=== PATIENT | female | born 1950 | race Caucasian/White ===

== ENCOUNTER 2016-12-09 23:35 | Inpatient (IN) ==
[2016-12-10] MEDS ORDERED: SODIUM CHLORIDE 0.9% 1,000 ML IV STA ×2 (00:05→03:05)
[2016-12-10 00:18] LABS: Basophils % 0.1 % (0.0-0.8); Eosinophils # 0.1 10*3/uL (0.0-0.87); Eosinophils % 0.5 % (0.00-10.9); Hematocrit 39.6 VOL% (35.7-47.0); Hemoglobin 13.5 GM/DL (12.0-16.0); Immature Granulocytes % 0.8 %; Immature Granulocytes Absolute 0.17 #; Lymphocytes # 2.1 10*3/uL (1.4-4.0); Lymphocytes % 9.7 % (21.3-54.2); Mean Corpuscular HGB Conc 34.1 GM/DL (32-36); Mean Corpuscular Hemoglobin 29 PG (27-34); Mean Corpuscular Volume 86.3 FL (87-102); Mean Platelet Volume 11.9 FL (9.6-12.0); Monocytes # 0.6 10*3/uL (0.11-0.8); Monocytes % 2.8 % (1.7-12.7); Neutrophils # 18.2 10*3/uL (1.4-7.4); Neutrophils % 86.1 % (38.7-73.9); Platelet Count 136 T/CUMM (130-400); Red Blood Count 4.59 MC/CUMM (3.8-5.5); Red Cell Distribution Width 15.1 % (9.3-17.3); White Blood Count 21.2 T/CUMM (4-12)
[2016-12-10 00:24] LABS: PT Patient Result 22.1 SECS
[2016-12-10 00:28] LABS: Albumin 3.4 G/DL (3.4-5.0); Bilirubin,Total 0.4 MG/DL (0.2-1.0); Calcium 8.6 MG/DL (8.5-10.1); Osmolality,Calculated 273.8 MOS/KG (273-304); Total Protein 6.4 G/DL (6.4-8.3)
[2016-12-10 01:08] LABS: Band Neutrophils 6 % (0-10); Lactic Acid 1.2 MMOL/L (0.4-2.0); Lymphocytes 5 % (20-55); Segmented Neutrophils 86 % (50-85); Total Cells Counted 100
[2016-12-10 01:09] LABS: Anisocytosis 1+; Platelet Estimate Normal
[2016-12-10 01:49] LABS: Apearance,Urine CLEAR (Clear); Bacteria,Urine Moderate /HPF (Few); Bilirubin,Urine Negative (Negative); Blood, Urine Negative (Negative); Glucose,Urine (UA) Negative (Negative); Hyaline Casts,Urine 19 /LPF (0-3); Ketones,Urine Negative (Negative); Mucus,Urine Occasional /LPF (Occasional); Nitrite,Urine Negative (Negative); Protein,Urine Negative; RBC,Urine <1 /HPF (0-4); Squamous Epithelial Cell,Urine Occasional /HPF (0-10); Urine Color Yellow (Yellow); Urine Specific Gravity 1.008 (1.001-1.035); Urine Urobilinogen < 2.0 EU/DL (0.2-1.0); WBC,Urine <1 /HPF (0-6)
[2016-12-10] MEDS ORDERED: cefTRIAXone 1,000 MG in SODIUM CHLORIDE 0.9% 100 ML IV STA (03:06)
[2016-12-10] MEDS ORDERED: MEPERIDINE 50 MG TABLET PO PRN (03:19)
[2016-12-10] MEDS ORDERED: CETIRIZINE 10 MG TABLET PO PRN (03:19)
[2016-12-10] MEDS ORDERED: NITROGLYCERIN SL 0.4 MG TABLET SL PRN (03:19)
[2016-12-10] MEDS ORDERED: HYDROMORPHONE HCL 2 MG PO PRN (03:19)
[2016-12-10] MEDS ORDERED: SODIUM CHLORIDE 0.9% 100 ML IV ONE (03:38)
[2016-12-10] MEDS ORDERED: cefTRIAXone 1,000 MG VIAL ONE (03:38)
[2016-12-10] MEDS ORDERED: BISACODYL 5 MG TABLET PO PRN (04:01)
[2016-12-10] MEDS ORDERED: ONDANSETRON 4 MG/2 ML VIAL IV PRN (04:01)
--- NOTE | 2016-12-10 04:05 | Hospitalist History & Physical ---
History of Present Illness History of present illness: Ms. Coe is a 66 year old female Home Medications Medication Instructions Recorded Confirmed Type Betamethasone Valerate 1 applic TOP BID 07/03/16 07/18/16 History [Betamethasone Valerate 0.1% Cream] Biotin 5,000 mcg PO DAILY 07/03/16 07/18/16 History Cetirizine HCl [ZyrTEC Cap] 10 mg PO DAILY PRN 07/03/16 07/18/16 History Clotrimazole/Betameth Cream 1 applic TOP BID 07/03/16 07/18/16 History [Lotrisone Cream] Diclofenac 1% Gel [Voltaren 1% Gel] 1 applic TOP BID 07/03/16 07/18/16 History Fluoxetine HCl 40 mg PO DAILY 07/03/16 07/18/16 History Ketoconazole 2% Cream [Nizoral 2% 1 applic TOP BID 07/03/16 07/18/16 History Cream] Levothyroxine Sodium 112 mcg PO DAILY 07/03/16 07/18/16 History Niacin 500 mg PO BID 07/03/16 07/18/16 History Pregabalin [Lyrica] 100 mg PO BID 07/03/16 07/18/16 History Promethazine HCl 25 mg PO RT Q12H PRN 07/03/16 07/18/16 History Topiramate [Topamax] 2 tablet PO BEDTIME 07/03/16 07/18/16 History Warfarin [Coumadin] 7.5 mg PO DIRECTED 07/03/16 07/18/16 History amLODIPine [Norvasc] 2.5 mg PO DAILY 07/03/16 07/18/16 History clonazePAM TAB [KlonoPIN] 0.5 mg PO BID PRN 07/03/16 07/18/16 History Hydromorphone HCl [Dilaudid] 2 mg PO DIRECTED PRN 07/11/16 07/24/16 History Meperidine Tab [Demerol Tab] 50 mg PO BID PRN 07/18/16 07/18/16 History Nitroglycerin Sl Tab [Nitrostat] 0.4 mg SL Q5M PRN 07/18/16 07/18/16 History Pantoprazole Sodium [Protonix] 40 mg PO BID 07/24/16 07/24/16 History Allergies Allergy/AdvReac Type Severity Reaction Status Date / Time codeine Allergy Unknown Unknown/Unable Verified 07/11/16 10:42 to obtain morphine Allergy Unknown Unknown/Unable Verified 07/11/16 10:42 to obtain Medical,Surgical,& Family Hx - Medical History Cardio: History of: CAD, Hypertension No history of: [place] Psychological: History of: Depression Neurology: History of: Cerebrovascular Accident, Migraine No history of: Seizures HEENT: History of: Ear Problem ([place]), Eye Problem (No peripheral visions) Endocrine: History of: Thyroid Disorder (Hypothyroid) Rheumatology: History of;: Psoriasis Respiratory: History of: Respiratory Problems (Seasonal allergies) Renal: No history of: Renal Problems Genitourinary: No history of: Bladder Problem, Kidney Stones Gastrointestinal: History of: GERD, Hemorrhoids No history of: Polyps Musculoskeletal: History of: Back/Neck Problems, Degenerative Disk Disease, Musculoskeletal Problems (Arthritis) Reproductive: No history of: Abnormal Pap Smear, Breast Cancer, Reproductive Cancer - Surgical History Cardiac Surgeries: Sugical HX of: Cardiac Catheterization, Carotid Endarterectomy HEENT Surgeries: Surgical HX of: Carotid Endarterectomy, Eye Surgery (Bilateral cataract removal), Tonsilectomy & Adenoidectomy Patient denies: Thyroid Surgery Abdominal Surgeries: Surgical HX of: Abdominal Surgery, Appendectomy, Cholecystectomy, Colonoscopy, EGD Patient denies: Gastric Bypass Surgery, Hernia Repair Reproductive Surgeries: Surgical HX of;: Gynecologic Surgery, Hysterectomy Patient denies;: Genitourinary Surgery Orthopedic Surgeries: Patient denies;: Orthopedic Surgery - Family History Family History: Reports;: Family Diabetes (Mother, Sister x3), Family Heart Disease (Mother) Denies;: Family Anesthesia Reaction, Family Cancer, Family Hypertension, Family Psychiatric Problems, Family Stroke - Social History Smoking Status: Current some day smoker Frequency of Alcohol Use: None Type of Drug Use: None Exam - Constitutional Vitals: Period Temp Pulse Resp BP Sys/Mer[place] Pulse Ox Last 24 Hr 98.2 F-98.2 F 52-77 16-20 81-109/50-65 95-100 Results - Labs CBC & BMP: 12/10/16 00:00 12/10/16 00:00
[2016-12-10 04:31] LABS: Free T4 (Free Thyroxine) 1.39 NG/DL (0.76-1.46); Thyroid Stimulating Hormone 6.01 uIU/ml (0.358-3.74)
--- NOTE | 2016-12-10 04:56 | Emergency Department Note ---
INeal Mantricia, am scribing for, and in the presence of, Shana Cassidy DO 00:03. I, Shana Cassidy DO, personally performed the services described in this documentation, ascribed by Ej De Jesus in my presence, and it is both accurate and complete [id number] . Arrival - Arrival Chief Complaint: Neuro Stated Complaint: chest pain/poss. stroke ED Nursing Triage Note: C/O Not able to use words appropriately/headache/chest pain. 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 Stroke Alert activated for expressive aphasia and partial vision loss Mode of Arrival: Wheelchair Limitations: No Limitations Source: Patient, Significant other - History of Present Illness HPI Narrative: Pt is a 66 y/o white female arriving to ED for evaluation of possible CVA. reports that pt told him that she was not feeling well and was about to lay down. He states that he heard her yell from the bedroom; once there, pt told him that "everything was león" so he brought her to ED. Pt c/o chest pain, back pain, rib pain, and headache. Pt has a PSHx of 4 carotid artery surgeries and has a PMHx of HTN, heart problems, and a CVA in the past. During exam, pt states that she feels like she is getting a "tight hug from a gorilla." She is currently taking Coumadin. Stroke Alert was activated for expressive aphasia and partial vision loss. No other complaints were reported to ED. Onset (ago): hour(s) Consistency: constant Severity: mild Date of Last Menstrual Period: na Allergies/Adverse Reactions: Allergies Allergy/AdvReac Type Severity Reaction Status Date / Time codeine Allergy Unknown Unknown/Unable Verified 07/11/16 10:42 to obtain morphine Allergy Unknown Unknown/Unable Verified 07/11/16 10:42 to obtain Home Medications: Home Medications Medication Instructions Recorded Confirmed Type Betamethasone Valerate 1 applic TOP BID 07/03/16 07/18/16 History [Betamethasone Valerate 0.1% Cream] Biotin 5,000 mcg PO DAILY 07/03/16 07/18/16 History Cetirizine HCl [ZyrTEC Cap] 10 mg PO DAILY PRN 07/03/16 07/18/16 History Clotrimazole/Betameth Cream 1 applic TOP BID 07/03/16 07/18/16 History [Lotrisone Cream] Diclofenac 1% Gel [Voltaren 1% Gel] 1 applic TOP BID 07/03/16 07/18/16 History Fluoxetine HCl 40 mg PO DAILY 07/03/16 07/18/16 History Ketoconazole 2% Cream [Nizoral 2% 1 applic TOP BID 07/03/16 07/18/16 History Cream] Levothyroxine Sodium 112 mcg PO DAILY 07/03/16 07/18/16 History Niacin 500 mg PO BID 07/03/16 07/18/16 History Pregabalin [Lyrica] 100 mg PO BID 07/03/16 07/18/16 History Promethazine HCl 25 mg PO RT Q12H PRN 07/03/16 07/18/16 History Topiramate [Topamax] 2 tablet PO BEDTIME 07/03/16 07/18/16 History Warfarin [Coumadin] 7.5 mg PO DIRECTED 07/03/16 07/18/16 History amLODIPine [Norvasc] 2.5 mg PO DAILY 07/03/16 07/18/16 History clonazePAM TAB [KlonoPIN] 0.5 mg PO BID PRN 07/03/16 07/18/16 History Hydromorphone HCl [Dilaudid] 2 mg PO DIRECTED PRN 07/11/16 07/24/16 History Meperidine Tab [Demerol Tab] 50 mg PO BID PRN 07/18/16 07/18/16 History Nitroglycerin Sl Tab [Nitrostat] 0.4 mg SL Q5M PRN 07/18/16 07/18/16 History Pantoprazole Sodium [Protonix] 40 mg PO BID 07/24/16 07/24/16 History Review of System - Review of System 12 point system: reviewed and no additional remarkable complaints except as stated - Review of System Constitutional: Present: other (possible CVA) Eyes: Present: vision change Respiratory: Absent: cough Cardiovascular: Present: chest pain Gastrointestinal: Absent: abdominal pain, nausea, vomiting, diarrhea Musculoskeletal: Present: back pain. Absent: arm pain, leg pain, neck pain Neurological: Present: headache Medical,Surgical,& Family Hx - Medical History Cardio: History of: CAD, Hypertension No history of: [place] Psychological: History of: Depression Neurology: History of: Cerebrovascular Accident, Migraine No history of: Seizures HEENT: History of: Ear Problem ([place]), Eye Problem (No peripheral visions) Endocrine: History of: Thyroid Disorder (Hypothyroid) Rheumatology: History of;: Psoriasis Respiratory: History of: Respiratory Problems (Seasonal allergies) Renal: No history of: Renal Problems Genitourinary: No history of: Bladder Problem, Kidney Stones Gastrointestinal: History of: GERD, Hemorrhoids No history of: Polyps Musculoskeletal: History of: Back/Neck Problems, Degenerative Disk Disease, Musculoskeletal Problems (Arthritis) Reproductive: No history of: Abnormal Pap Smear, Breast Cancer, Reproductive Cancer - Surgical History Cardiac Surgeries: Sugical HX of: Cardiac Catheterization, Carotid Endarterectomy HEENT Surgeries: Surgical HX of: Carotid Endarterectomy, Eye Surgery (Bilateral cataract removal), Tonsilectomy & Adenoidectomy Patient denies: Thyroid Surgery Abdominal Surgeries: Surgical HX of: Abdominal Surgery, Appendectomy, Cholecystectomy, Colonoscopy, EGD Patient denies: Gastric Bypass Surgery, Hernia Repair Reproductive Surgeries: Surgical HX of;: Gynecologic Surgery, Hysterectomy Patient denies;: Genitourinary Surgery Orthopedic Surgeries: Patient denies;: Orthopedic Surgery - Family History Family History: Reports;: Family Diabetes (Mother, Sister x3), Family Heart Disease (Mother) Denies;: Family Anesthesia Reaction, Family Cancer, Family Hypertension, Family Psychiatric Problems, Family Stroke - Social History Smoking Status: Current some day smoker Frequency of Alcohol Use: None Type of Drug Use: None Exam Vital Signs: Vital Signs Temperature 98.2 F 12/09/16 23:35 Pulse Rate 77 12/10/16 03:40 Respiratory Rate 20 12/10/16 03:40 Blood Pressure 104/64 12/10/16 03:40 O2 Sat by Pulse Oximetry 97 12/10/16 03:40 - General General appearance: alert, in no apparent distress - Head Head exam: Present: atraumatic, normocephalic, normal inspection - Eye Eye exam: Present: normal appearance, PERRL, EOMI - ENT ENT exam: Present: normal exam, normal oropharynx, mucous membranes moist, TM's normal bilaterally, normal external ear exam - Neck Neck exam: Present: normal inspection, full ROM, trachea midline. Absent: tenderness - Chest Chest inspection: Present: normal inspection, symmetric chest wall rise. Absent : tenderness - Respiratory Respiratory exam: Present: normal lung sounds bilaterally - Cardiovascular Cardiovascular exam: Present: regular rate, normal rhythm, normal heart sounds - Abdominal Exam Abdominal exam: Present: soft, normal bowel sounds. Absent: distention, tenderness, guarding, rebound - Extremities Exam Extremities exam: Present: normal inspection, full ROM, normal capillary refill. Absent: tenderness, pedal edema - Back Exam Back exam: Present: normal inspection, full ROM. Absent: tenderness - Neurological Exam Neurological exam: Present: alert, oriented X3, CN II-XII intact, normal gait, reflexes normal - Psychiatric Psychiatric exam: Present: normal affect, normal mood - Skin Skin exam: Present: warm, dry, intact, normal color Course Course Narrative: Ct head negative. Per my exam pt is not having expressive aphasia, she seems slightly confused and having word finding difficulty. labs reveal wbc of 21, given hypotensive (responsive to fluids) more likely considering sepsis picture. unable to find source, CXr normal, CT abd/pelvis shows cirrhosis. could be hepatitis vs hepatic encephalopathy vs ? given rocephin for empiric treatment, blood cultures ordered and admitted. Pt is Dr Bravo patient. Results - Labs CBC & BMP: 12/10/16 00:00 12/10/16 00:00 Lab Results: I have reviewed the patients labs - EKG EKG results: interpreted by LUPE BENNETT - Diagnostic Findings Procedure: Chest x-ray: image reviewed by me, CT Abdomen and Pelvis: report reviewed by me (liver cirrhosis with retroperitoneal fat stranding diffusely), CT: image reviewed by me, report reviewed by me (no stroke signs) Disposition Clinical Impression: Leukocytosis, Sepsis Case discussed with: patient Disposition: Still a Patient Condition: Stable
[2016-12-10] MEDS: SODIUM CHLORIDE 0.9% 1,000 ML IV SCH ×3 (05:46→23:48)
--- NOTE | 2016-12-10 06:43 | CT Report ---
CT abdomen pelvis w con Indication: Sepsis Comparison: 10/01/2010 CT Technique: CT of the abdomen and pelvis was performed following administration of intravenous contrast. Coronal and sagittal reformatted images were additionally created and submitted for review. The total DLP is 1013 mGy*cm. Dose reduction: This CT exam was performed using one or more of the following dose reduction techniques: Automated exposure control, automated adjustment of the mA and/or KV according to patient size, or use of iterative reconstruction technique. Findings: Very minimal posterior basilar dependent atelectatic changes are noted bilaterally. Lung bases are otherwise clear. There is no pleural or pericardial effusion. ABDOMEN: Liver/Gallbladder: No abnormal enhancing hepatic lesions. Cholecystectomy clips are noted. Mild nodular contour of the liver margin suggesting a degree of underlying cirrhosis. Portal vein is patent. Spleen: Enlarged, similar to prior, suggestive of portal hypertension. Pancreas: No acute findings. Adrenals: 2.3 cm right adrenal hypodense nodule is essentially unchanged from the 2011 study, which suggests benign artery. Additional hypodense lesion within the left adrenal gland is stable from prior. Kidneys: Both kidneys enhance symmetrically. There is excretion of acute contrast from both kidneys on delayed images. Bowel/mesentery: Small bowel is nondilated. There is no free fluid/air within the abdomen. There is no mesenteric adenopathy. There is moderate stool throughout colon suggesting a degree of fecal stasis/constipation. Colon is otherwise nondilated with no focal lesions. Retroperitoneum: No evidence of aortic aneurysm or significant retroperitoneal adenopathy. PELVIS: No free fluid. Bladder appears grossly unremarkable for degree of distention. There has been a prior hysterectomy. No adenopathy. BONES: No acute or suspicious osseous abnormalities are identified. IMPRESSION: 1. No acute abnormality within the abdomen or pelvis to explain patient's symptoms. 2. Findings of hepatic cirrhosis and splenomegaly. 3. Findings suggestive of stasis/constipation. Preliminary report by [facility]. 12/10/2016 6:35 AM PROCEDURE INTERPRETED AT [facility] DEPARTMENT OF RADIOLOGY Final Report Signed by: Dennis Ferreira
--- NOTE | 2016-12-10 07:39 | CT Report ---
CT head/brain wo con INDICATION: Expressive aphasia Headache The total DLP is 1225 mGy*cm. COMPARISON: prior MRI brain 07/02/2016 Technique: Serial axial tomographic images of the brain were obtained without the use of intravenous contrast. Dose reduction: This CT exam was performed using one or more of the following dose reduction techniques: Automated exposure control, automated adjustment of the mA and/or KV according to patient size, or use of iterative reconstruction technique. Findings: Mild generalized atrophy is noted with mild prominence of the sulci and cortical volume loss. Periventricular white matter hypodensity changes are noted bilaterally which do not demonstrate mass effect and are nonspecific but favored to represent sequela of chronic microvascular ischemia. There is also somewhat focal hypodensity within the periventricular and subcortical left frontal lobe white and mederos matter suggesting remote infarct and encephalomalacia. There is no evidence of vascular territory infarct or acute intracranial hemorrhage. The mederos-white matter differentiation is generally maintained. There is no hydrocephalus. The basilar cisterns are patent. The visualized paranasal sinuses, mastoid air cells and middle ear cavities are predominantly clear. The included orbits and their contents appear within normal limits. The visualized osseous structures and overlying soft tissues of the skull and face demonstrate no acute abnormality. IMPRESSION: No acute intracranial hemorrhage or vascular territory infarction. Mild atrophy and sequela of chronic microvascular ischemia. Remote left frontal lobe infarct. Preliminary report by [facility]. PROCEDURE INTERPRETED AT [facility] DEPARTMENT OF RADIOLOGY Final Report Signed by: Dennis Ferreira
--- NOTE | 2016-12-10 07:55 | XRay Report ---
Exam: XR chest 1V portable Indication: Sepsis, cardiomegaly Comparison study: 12/27/2008 radiograph Findings: Cardiac silhouette is mildly enlarged, similar to prior. There are minimal perihilar interstitial opacities, which appears slightly increased from prior with minimal peribronchial thickening also noted. There is no definite focal consolidation. There is no pneumothorax or pleural effusion. Osseous structures appear stable.. Impression: Cardiomegaly with minimal perihilar interstitial opacities and peribronchial thickening may represent bronchitis or other viral or atypical infectious/inflammatory process. A mild degree of pulmonary edema is not excluded but favored to be less likely. PROCEDURE INTERPRETED AT [facility] DEPARTMENT OF RADIOLOGY Final Report Signed by: Dennis Ferreira
--- NOTE | 2016-12-10 07:59 | EKG Report ---
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
[2016-12-10] MEDS ORDERED: NIACIN 500 MG TABLET PO SCH (09:00)
[2016-12-10] MEDS ORDERED: FLUoxetine 20 MG CAPSULE PO SCH (09:00)
--- NOTE | 2016-12-10 09:36 | Internal Med History&Physical ---
Assessment and Plan (1) Sepsis Status: Acute Assessment and plan: 66-year-old female admitted to acute care * Possible sepsis with leukocytosis. Etiology of patient's symptoms unclear. She was hypotensive and had severe headache initially. Her white count is elevated. Her chest x-ray is suspicious for infiltrate. She has some coarse but equal breath sounds. She has been given IV antibiotics and blood cultures were done. Will add Zithromax. * Hypertension. Blood pressure is better controlled now. Initially it was quite low. * History of severe peripheral vascular disease. Patient has had bilateral carotid endarterectomy twice. Her INR is therapeutic * Chest pain. It appears more of musculoskeletal origin. Will check troponin * Chronic back pain. Will continue her pain medication * Chronic depression. Continue current treatment * History of CVA. I doubt patient had a TIA or neurological event. She did not had any expressive aphasia. I have offered her consultation with neurology but she declines * Continue current treatment Current Visit: Yes (2) Hypertension Status: Acute Current Visit: Yes (3) History of bilateral carotid endarterectomy Status: Acute Current Visit: Yes (4) Chronic back pain Status: Acute Current Visit: Yes (5) Depression Status: Acute Current Visit: Yes (6) Leukocytosis Status: Acute Current Visit: Yes History of Present Illness Chief complaint: Not feeling well, headache, chest pressure History of present illness: Ms. Coe is a 66 year old female with history of multiple medical problems including severe peripheral vascular disease requiring bilateral carotid endarterectomy twice, migraine headaches, chronic anticoagulation, hypertension , chronic back pain, depression, hypothyroidism who presented to the emergency room with complaints of not feeling well for past few days. She was lying in her bed and last for her that everything was going great. She was brought to the emergency room. She had chest pain back pain and rib pain and headaches. She was found to be hypotensive. There was a question about expressive aphasia but patient denies it. There was also question of problems with her vision. She felt it was meedros. She denied any weakness in her hands or feet. She denies any slurred speech. She denies any nausea vomiting or diarrhea. She has been having chronic back pain and has been seeing pain clinic. She has not received any recent steroid injections. She denies any anginal type chest pain. There was a question about confusion. She was found to have elevated white count and was hypotensive. She was started on fluid bolus and given IV fluids and IV antibiotics. Cultures were done. Patient had a CT scan of abdomen which showed no acute changes but possible changes of cirrhosis of liver with splenomegaly. Patient lives at home with her . She has been a smoker all her life. She occasionally drinks alcohol. She denies any drug use in the past. Her daughter has history of hepatitis. Home Medications Medication Instructions Recorded Confirmed Type Betamethasone Valerate 1 applic TOP BID PRN 07/03/16 12/10/16 History [Betamethasone Valerate 0.1% Cream] Biotin 5,000 mcg PO DAILY 07/03/16 12/10/16 History Cetirizine HCl [ZyrTEC Cap] 10 mg PO DAILY PRN 07/03/16 12/10/16 History Clotrimazole/Betameth Cream 1 applic TOP BID PRN 07/03/16 12/10/16 History [Lotrisone Cream] Diclofenac 1% Gel [Voltaren 1% Gel] 1 applic TOP BID PRN 07/03/16 12/10/16 History Fluoxetine HCl 40 mg PO BEDTIME 07/03/16 12/10/16 History Levothyroxine Sodium 112 mcg PO DAILY 07/03/16 12/10/16 History Niacin 500 mg PO BID 07/03/16 12/10/16 History Promethazine HCl 25 mg PO Q8H PRN 07/03/16 12/10/16 History Topiramate [Topamax] 100 mg PO BEDTIME 07/03/16 12/10/16 History Warfarin [Coumadin] 7.5 mg PO DIRECTED 07/03/16 12/10/16 History amLODIPine [Norvasc] 2.5 mg PO DAILY 07/03/16 12/10/16 History Meperidine Tab [Demerol Tab] 50 mg PO TID 07/18/16 12/10/16 History Nitroglycerin Sl Tab [Nitrostat] 0.4 mg SL Q5M PRN 07/18/16 12/10/16 History Pantoprazole Sodium [Protonix] 40 mg PO BID 07/24/16 12/10/16 History Allergies Allergy/AdvReac Type Severity Reaction Status Date / Time codeine Allergy Unknown Unknown/Unable Verified 07/11/16 10:42 to obtain morphine Allergy Unknown Unknown/Unable Verified 07/11/16 10:42 to obtain Medical,Surgical,& Family Hx - Medical History Cardio: History of: CAD, Hypertension No history of: [place] Psychological: History of: Depression Neurology: History of: Cerebrovascular Accident, Migraine No history of: Seizures HEENT: History of: Ear Problem ([place]), Eye Problem (No peripheral visions) Endocrine: History of: Thyroid Disorder (Hypothyroid) Rheumatology: History of;: Psoriasis Respiratory: History of: Respiratory Problems (Seasonal allergies) Renal: No history of: Renal Problems Genitourinary: No history of: Bladder Problem, Kidney Stones Gastrointestinal: History of: GERD, Hemorrhoids No history of: Polyps Musculoskeletal: History of: Back/Neck Problems, Degenerative Disk Disease, Musculoskeletal Problems (Arthritis) Reproductive: No history of: Abnormal Pap Smear, Breast Cancer, Reproductive Cancer - Surgical History Cardiac Surgeries: Sugical HX of: Cardiac Catheterization, Carotid Endarterectomy HEENT Surgeries: Surgical HX of: Carotid Endarterectomy (Bilateral twice), Eye Surgery (Bilateral cataract removal), Tonsilectomy & Adenoidectomy Patient denies: Thyroid Surgery Abdominal Surgeries: Surgical HX of: Abdominal Surgery, Appendectomy, Cholecystectomy, Colonoscopy, EGD Patient denies: Gastric Bypass Surgery, Hernia Repair Reproductive Surgeries: Surgical HX of;: Gynecologic Surgery, Hysterectomy Patient denies;: Genitourinary Surgery Orthopedic Surgeries: Patient denies;: Orthopedic Surgery - Family History Family History: Reports;: Family Diabetes (Mother, Sister x3), Family Heart Disease (Mother) Denies;: Family Anesthesia Reaction, Family Cancer, Family Hypertension, Family Psychiatric Problems, Family Stroke - Social History Smoking Status: Current some day smoker Frequency of Alcohol Use: Rarely Type of Drug Use: None Marital Status: Lives With:: Spouse Functional capacity: uses cane/walker 12 point system: reviewed and no additional remarkable complaints except as stated (As mentioned in the HPI) Exam - Constitutional Vitals: Period Temp Pulse Resp BP Sys/Merida Pulse Ox Last 24 Hr 96.7 F-98.4 F 52-97 16-20 81-144/50-87 94-100 Exam: Examination: GENERAL: NAD. HEENT: PERRLA. EOMI. Mucous membranes are moist. NECK: Neck is supple. No JVD. No carotid bruit. No thyromegaly. CVS: Regular rate and rhythm. S1 and S2 are normal. She is tender in the chest wall. RESPIRATORY: Lungs are mostly clear. Few coarse breath sounds at the right base ABDOMEN: Soft and nontender. Bowel sounds are present. No hepatosplenomegaly. EXT: No edema. Peripheral pulses are present. 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 Cranial nerves II through XII are grossly intact. Motor strength is 5 over 5 both upper and lower extremities. SKIN: Warm and dry. MSK: No obvious deformity. Results - Labs CBC & BMP: 12/10/16 00:00 12/10/16 00:00 Lab Results: I have reviewed the past 24 hour labs Quality Measures - Stroke Onset of Symptoms Date: 12/09/16 Onset of Symptoms Time: 22:30 Symptom Onset Unknown: No
[2016-12-10] MEDS: LEVOTHYROXINE 112 MCG TABLET PO SCH (09:46)
[2016-12-10] MEDS: PANTOPRAZOLE 40 MG TABLET PO SCH ×2 (09:46→21:28)
[2016-12-10] MEDS ORDERED: ASPIRIN CHEW 81 MG TABLET PO ONE (10:29)
[2016-12-10 10:36] LABS: Troponin I Only < 0.015 NG/ML (0.00-0.045)
[2016-12-10] MEDS: CLOTRIMAZOLE/BETAMETHASONE CREAM 15 GM TUBE TOP SCH ×3 (10:51→22:42)
[2016-12-10] MEDS: KETOCONAZOLE 2% CREAM 30 GM TUBE TOP SCH ×3 (10:51→22:42)
[2016-12-10] MEDS: BETAMETHASONE VALERATE 0.1% CREAM 15 GM TUBE TOP SCH ×2 (10:52→21:35)
[2016-12-10] MEDS: DICLOFENAC 1% GEL 100 GM TUBE TOP SCH ×2 (10:52→21:33)
[2016-12-10 11:29] LABS: Hepatitis A Ab IgM Quant 0.07 Index; Hepatitis A Ab IgM Result Negative (Negative); Hepatitis B Core IgM Quant 0.14 Index; Hepatitis B Core IgM Result Negative (Negative); Hepatitis B Surface Ag Quant < 0.10 Index; Hepatitis B Surface Ag Result Negative (Negative); Hepatitis C Virus Ab Quant 0.11 Index; Hepatitis C Virus Ab Result Negative (Negative)
[2016-12-10] MEDS: AZITHROMYCIN INJ 500 MG in SODIUM CHLORIDE 0.9% 250 ML IV SCH (11:47)
[2016-12-10] MEDS ORDERED: SIMETHICONE CHEW 125 MG TABLET PO PRN (15:43)
[2016-12-10] MEDS: WARFARIN 7.5 MG TABLET PO SCH (18:30)
[2016-12-10] MEDS: FLUoxetine 20 MG CAPSULE PO SCH (21:28)
[2016-12-10] MEDS: TOPIRAMATE 100 MG TABLET PO SCH (21:33)
[2016-12-10] MEDS: clonazePAM 0.5 MG TABLET PO PRN (21:45)
[2016-12-11] MEDS: cefTRIAXone 1,000 MG in SODIUM CHLORIDE 0.9% 100 ML IV SCH (03:33)
[2016-12-11 04:46] LABS: Basophils % 0.2 % (0.0-0.8); Eosinophils # 0.1 10*3/uL (0.0-0.87); Eosinophils % 1.6 % (0.00-10.9); Hematocrit 37.8 VOL% (35.7-47.0); Hemoglobin 12.5 GM/DL (12.0-16.0); Immature Granulocytes % 0.5 %; Immature Granulocytes Absolute 0.03 #; Lymphocytes # 1.4 10*3/uL (1.4-4.0); Lymphocytes % 24.9 % (21.3-54.2); Mean Corpuscular HGB Conc 33.1 GM/DL (32-36); Mean Corpuscular Hemoglobin 29 PG (27-34); Mean Corpuscular Volume 87.1 FL (87-102); Mean Platelet Volume 11.5 FL (9.6-12.0); Monocytes # 0.2 10*3/uL (0.11-0.8); Monocytes % 3.8 % (1.7-12.7); Platelet Count 106 T/CUMM (130-400); Red Blood Count 4.34 MC/CUMM (3.8-5.5); Red Cell Distribution Width 15.5 % (9.3-17.3); White Blood Count 5.7 T/CUMM (4-12)
[2016-12-11] MEDS: SODIUM CHLORIDE 0.9% 1,000 ML IV SCH ×3 (05:11→23:18)
[2016-12-11 05:19] LABS: Troponin I Only < 0.015 NG/ML (0.00-0.045)
[2016-12-11 05:20] LABS: Albumin 3.1 G/DL (3.4-5.0); Bilirubin,Total 0.5 MG/DL (0.2-1.0); Calcium 8.3 MG/DL (8.5-10.1); Osmolality,Calculated 277.3 MOS/KG (273-304); Potassium 3.9 MMOL/L (3.5-5.1); Total Protein 5.8 G/DL (6.4-8.3)
[2016-12-11 05:28] LABS: PT Patient Result 21.6 SECS
--- NOTE | 2016-12-11 07:48 | EKG Report ---
Stationary ECG Study [facility] Test Date: 12/11/2016 7:48:09 AM Pat Name: STACY CHERY Department: Room: 285 Gender: F Lab Aid: CHADWICK : 1950 Requested by: Chuy Bravo Order Number: [id number] Reading MD: LIBRA NATION Intervals [place] Rate: 73 P: 66 [place]: 136 QRS: 73 QRSD: 74 T: 70 QT: 388 QTc: 415 Interpretive Statements SINUS RHYTHM at 73 bpm LOW QRS VOLTAGE IN PRECORDIAL LEADS Possible OLD ANTERIOR MYOCARDIAL INFARCTION Electronically Signed On 12-11-16 11:07:09 CDT by LIBRA NATION [id number]
--- NOTE | 2016-12-11 07:52 | Internal Med Progress Note ---
Assessment and Plan (1) Sepsis Status: Acute Assessment and plan: 66-year-old female admitted to acute care * Possible sepsis with leukocytosis. White count is better. She is afebrile. Will repeat a chest x-ray. * Hypertension. Blood pressure is better controlled now. Decrease fluid * History of severe peripheral vascular disease. Patient has had bilateral carotid endarterectomy twice. Her INR is therapeutic * Chest pain. Musculoskeletal. Troponin negative * Chronic back pain. Will continue her pain medication * Chronic depression. Continue current treatment * History of CVA. Stable * Start PT and OT. * Consult GI for possible cirrhotic changes on CT scan of abdomen with splenomegaly * Discussed with patient and her Current Visit: Yes (2) Hypertension Status: Acute Current Visit: Yes (3) History of bilateral carotid endarterectomy Status: Acute Current Visit: Yes (4) Chronic back pain Status: Acute Current Visit: Yes (5) Depression Status: Acute Current Visit: Yes (6) Leukocytosis Status: Acute Current Visit: Yes Internal Medicine - PN: Subj Interval history: She is feeling better this morning. No chest pain or shortness of breath. She is still having headaches. She denies any nausea or vomiting. Exam (Progress Note) - Constitutional Vitals: Period Temp Pulse Resp BP Sys/Merida Pulse Ox Last 24 Hr 97.6 F-98.6 F 63-76 16-20 111-130/55-70 91-99 Exam: Examination: GENERAL: NAD. HEENT: PERRLA. EOMI. NECK: Neck is supple. CVS: Regular rate and rhythm. S1 and S2 are normal. RESPIRATORY: Lungs are mostly clear. ABDOMEN: Soft and nontender. No hepatosplenomegaly. EXT: No edema. Peripheral pulses are present. TIE CUTTER: Nonfocal SKIN: Warm and dry. MSK: No obvious deformity. Results - Labs CBC & BMP: 12/11/16 04:10 12/11/16 04:10 Lab Results: I have reviewed the past 24 hour labs Quality Measures - Stroke Onset of Symptoms Date: 12/09/16 Onset of Symptoms Time: 22:30 Symptom Onset Unknown: No
[2016-12-11] MEDS ORDERED: BIOTIN 5000 MCG PO SCH (09:00)
[2016-12-11] MEDS: LEVOTHYROXINE 112 MCG TABLET PO SCH (09:40)
[2016-12-11] MEDS: PANTOPRAZOLE 40 MG TABLET PO SCH ×2 (09:41→21:13)
[2016-12-11] MEDS: CLOTRIMAZOLE/BETAMETHASONE CREAM 15 GM TUBE TOP SCH ×2 (09:42→23:21)
[2016-12-11] MEDS: BETAMETHASONE VALERATE 0.1% CREAM 15 GM TUBE TOP SCH ×2 (09:42→23:21)
[2016-12-11] MEDS: KETOCONAZOLE 2% CREAM 30 GM TUBE TOP SCH ×2 (09:42→23:21)
[2016-12-11] MEDS: DICLOFENAC 1% GEL 100 GM TUBE TOP SCH ×2 (09:43→21:26)
[2016-12-11] MEDS ORDERED: SIMETHICONE CHEW 125 MG TABLET PO PRN (09:47)
[2016-12-11] MEDS ORDERED: ACETAMINOPHEN/diphenhydrAMINE 500-25 MG TABLET PO PRN (10:07)
[2016-12-11] MEDS: AZITHROMYCIN INJ 500 MG in SODIUM CHLORIDE 0.9% 250 ML IV SCH (10:21)
[2016-12-11] MEDS ORDERED: KETOCONAZOLE 2% CREAM 30 GM TUBE TOP PRN (10:30)
--- NOTE | 2016-12-11 10:40 | Gastrointestinal Consult Note ---
Assessment and Plan (1) Abnormal CT of liver Status: Acute Assessment and plan: 12/11-Admitted with neurological changes, now resolved, with findings of leukocytosis on admission. CT of abdomen noted to show mildly nodular liver, splenomegaly with elevated alk phos. Ammonia 24. No significant hx of alcohol use in the past. Plan and addendum to follow by Dr aBy. Current Visit: Yes History of Present Illness Chief complaint: Abnormal CT History of present illness: Ms. Coe is a 66 year old female who was admitted to the hospital on yesterday following an onset of headache, blurred vision and worsening tinnitus. Patient states that she has not felt well over the last several weeks with just general malaise however on yesterday she had a fairly sudden onset of a severe headache which was followed by blurred vision and worsening of her tinnitus. Her was concerned she was possibly having a stroke he brought her to the emergency room for further evaluation. Patient has a prior history of PVD, migraine headaches, hypertension, chronic back and joint pain, depression, and hypothyroidism. She is currently on Coumadin therapy for history of CVA. Upon admission, patient was found to have leukocytosis however was afebrile. She was also found to be hypotensive and was admitted for further workup. Blood cultures have been done however at this time preliminary results are negative. She has had IV azithromycin initiated upon admission. Chest x-ray shows questionable infectious/inflammatory process with some peribronchial thickening. Urinalysis without indications for culture noted. LFT panel was obtained with unremarkable results other than an elevated alkaline phosphatase at 167. Cardiac enzymes have been negative. Albumin is slightly low at 3.1. INR is 2.0. She had a CT of the abdomen with IV contrast on admission as well with findings of no acute abnormalities however noted to have a mildly nodular contour of the liver suggesting underlying cirrhosis with patent portal vein and splenomegaly suggestive of portal hypertension. Patient states that she does smoke a half a pack a day and states that she only very rarely occasionally drinks a glass of wine. She denies any prior history in the past of heavy alcohol use. She denies any abdominal pain, fever or chills. She denies any melena or hematochezia. She states that she has had night sweats for a long period of time and as of recent she has had an increase in abdominal bloating with increased belching and flatus which is not usual for her. She states that she was unaware she was losing weight until her recent checkup and subjectively reports approximately 20 pounds over the last year or so. She does report having a daughter that was diagnosed with hepatitis in the past which she feels like was hepatitis B but states that her daughter has done well since that time and is currently no longer followed up for this. Her hepatitis panel on admission was noted to be negative. Her last endoscopy was in July of this year with EGD with only findings of hiatal hernia and colonoscopy with polyp removal (tubular adenoma) and hemorrhoids. Home Medications Medication Instructions Recorded Confirmed Type Betamethasone Valerate 1 applic TOP BID PRN 07/03/16 12/10/16 History [Betamethasone Valerate 0.1% Cream] Biotin 5,000 mcg PO DAILY 07/03/16 12/10/16 History Cetirizine HCl [ZyrTEC Cap] 10 mg PO DAILY PRN 07/03/16 12/10/16 History Clotrimazole/Betameth Cream 1 applic TOP BID PRN 07/03/16 12/10/16 History [Lotrisone Cream] Diclofenac 1% Gel [Voltaren 1% Gel] 1 applic TOP BID PRN 07/03/16 12/10/16 History Fluoxetine HCl 40 mg PO BEDTIME 07/03/16 12/10/16 History Levothyroxine Sodium 112 mcg PO DAILY 07/03/16 12/10/16 History Niacin 500 mg PO BID 07/03/16 12/10/16 History Promethazine HCl 25 mg PO Q8H PRN 07/03/16 12/10/16 History Topiramate [Topamax] 100 mg PO BEDTIME 07/03/16 12/10/16 History Warfarin [Coumadin] 7.5 mg PO DIRECTED 07/03/16 12/10/16 History amLODIPine [Norvasc] 2.5 mg PO BEDTIME 07/03/16 12/10/16 History Meperidine Tab [Demerol Tab] 50 mg PO TID PRN 07/18/16 12/10/16 History Nitroglycerin Sl Tab [Nitrostat] 0.4 mg SL Q5M PRN 07/18/16 12/10/16 History Pantoprazole Sodium [Protonix] 40 mg PO BID 07/24/16 12/10/16 History Ketoconazole 2% Cream [Nizoral 2% 1 applic TOP BID PRN 12/10/16 12/10/16 History Cream] Pregabalin [Lyrica] 200 mg PO BEDTIME 12/11/16 12/11/16 History Allergies Allergy/AdvReac Type Severity Reaction Status Date / Time codeine Allergy Unknown Unknown/Unable Verified 07/11/16 10:42 to obtain morphine Allergy Unknown Unknown/Unable Verified 07/11/16 10:42 to obtain Medical,Surgical,& Family Hx - Medical History Cardio: History of: CAD, Hypertension No history of: [place] Psychological: History of: Depression Neurology: History of: Cerebrovascular Accident, Migraine No history of: Seizures HEENT: History of: Ear Problem ([place]), Eye Problem (No peripheral visions) Endocrine: History of: Thyroid Disorder (Hypothyroid) Rheumatology: History of;: Psoriasis Respiratory: History of: Respiratory Problems (Seasonal allergies) Renal: No history of: Renal Problems Genitourinary: No history of: Bladder Problem, Kidney Stones Gastrointestinal: History of: GERD, Hemorrhoids No history of: Polyps Musculoskeletal: History of: Back/Neck Problems, Degenerative Disk Disease, Musculoskeletal Problems (Arthritis) Reproductive: No history of: Abnormal Pap Smear, Breast Cancer, Reproductive Cancer - Surgical History Cardiac Surgeries: Sugical HX of: Cardiac Catheterization, Carotid Endarterectomy (Bilateral twice) HEENT Surgeries: Surgical HX of: Carotid Endarterectomy (Bilateral twice), Eye Surgery (Bilateral cataract removal), Tonsilectomy & Adenoidectomy Patient denies: Thyroid Surgery Abdominal Surgeries: Surgical HX of: Abdominal Surgery, Appendectomy, Cholecystectomy, Colonoscopy, EGD Patient denies: Gastric Bypass Surgery, Hernia Repair Reproductive Surgeries: Surgical HX of;: Gynecologic Surgery, Hysterectomy Patient denies;: Genitourinary Surgery Orthopedic Surgeries: Patient denies;: Orthopedic Surgery - Family History Family History: Reports;: Family Diabetes (Mother, Sister x3), Family Heart Disease (Mother) Denies;: Family Anesthesia Reaction, Family Cancer, Family Hypertension, Family Psychiatric Problems, Family Stroke - Social History Smoking Status: Current some day smoker Frequency of Alcohol Use: Rarely Type of Drug Use: None 12 point system: reviewed and no additional remarkable complaints except as stated - Constitutional Constitutional: Present: as per HPI - EENT Eyes: Present: as per HPI Ears: Present: as per HPI Nose, mouth and throat: Present: as per HPI - Cardiovascular Cardiovascular: Present: as per HPI - Respiratory Respiratory: Present: as per HPI - Gastrointestinal Gastrointestinal: Present: as per HPI, dyspepsia, heartburn - Genitourinary Genitourinary: Present: as per HPI - Musculoskeletal Musculoskeletal: Present: as per HPI - Neurological Neurological: Present: as per HPI - Psychiatric Psychiatric: Present: as per HPI - Endocrine Endocrine: Present: as per HPI - Hematologic/Lymphatic Hematologic/Lymphatic: Present: as per HPI Exam - Constitutional Vitals: Period Temp Pulse Resp BP Sys/Merida Pulse Ox Last 24 Hr 97.6 F-98.6 F 67-76 16-20 111-135/55-70 91-99 General appearance: normal weight, no acute distress - Head Head exam: Present: normal inspection, normocephalic - Eye Eye exam: Present: other (Lids and conjunctivae are unremarkable). Absent: scleral icterus - ENT ENT exam: Present: normal exam, normal oropharynx - Neck Neck exam: Present: normal inspection - Respiratory Respiratory exam: Present: clear to auscultation bilaterally. Absent: rales, rhonchi, wheezes - Cardiovascular Cardiovascular exam: Present: regular rate and rhythm. Absent: diastolic murmur , JVD, systolic murmur - GI/Abdominal GI/Abdominal exam: Present: normal bowel sounds, soft. Absent: ascites, distended, mass, organomegaly, tenderness - Extremities Exam Extremities exam: Present: normal inspection, full ROM - Back Exam Back exam: Present: normal inspection - Neurological Exam Neurological exam: Present: alert, oriented X3 - Psychiatric Psychiatric exam: Present: normal affect, normal mood - Skin Skin exam: Present: normal color, warm, dry Results - Labs CBC & BMP: 12/11/16 04:10 12/11/16 04:10 Lab Results: I have reviewed the past 24 hour labs Quality Measures - Stroke Onset of Symptoms Date: 12/09/16 Onset of Symptoms Time: 22:30 Symptom Onset Unknown: No
[2016-12-11] MEDS: clonazePAM 0.5 MG TABLET PO PRN (11:27)
--- NOTE | 2016-12-11 12:26 | XRay Report ---
Exam: XR chest 2V Date: 12/11/2016 7:48 AM Indication: Follow-up pneumonia Comparison: 12/10/2016 Technical: PA lateral Findings: External cardiac leads are present. Calcification costochondral cartilages with ASVD. No obvious consolidations present. Mediastinum is demonstrated with small calcified nodes in the right infrahilar region suspected.. Prior cholecystectomy clips are suspected. The heart is mildly prominent. Impression: 1. 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 2. Prior cholecystectomy 3. Underlying cardiac enlargement PROCEDURE INTERPRETED AT [facility] DEPARTMENT OF RADIOLOGY Final Report Signed by: Dr. David Pichardo
[2016-12-11] MEDS ORDERED: SIMETHICONE 125 MG PO PRN (14:45)
[2016-12-11] MEDS: WARFARIN 7.5 MG TABLET PO SCH (18:04)
[2016-12-11] MEDS ORDERED: PREGABALIN 100 MG CAPSULE PO SCH (21:00)
[2016-12-11] MEDS: FLUoxetine 20 MG CAPSULE PO SCH (21:12)
[2016-12-11] MEDS: TOPIRAMATE 100 MG TABLET PO SCH (21:13)
[2016-12-12] MEDS: cefTRIAXone 1,000 MG in SODIUM CHLORIDE 0.9% 100 ML IV SCH (04:01)
[2016-12-12 04:50] LABS: Basophils % 0.2 % (0.0-0.8); Eosinophils # 0.1 10*3/uL (0.0-0.87); Eosinophils % 1.7 % (0.00-10.9); Hematocrit 37.8 VOL% (35.7-47.0); Hemoglobin 12.7 GM/DL (12.0-16.0); Immature Granulocytes % 0.3 %; Immature Granulocytes Absolute 0.02 #; Lymphocytes # 1.5 10*3/uL (1.4-4.0); Lymphocytes % 25.9 % (21.3-54.2); Mean Corpuscular HGB Conc 33.6 GM/DL (32-36); Mean Corpuscular Hemoglobin 29 PG (27-34); Mean Corpuscular Volume 86.5 FL (87-102); Monocytes # 0.3 10*3/uL (0.11-0.8); Monocytes % 5.1 % (1.7-12.7); Neutrophils # 3.9 10*3/uL (1.4-7.4); Neutrophils % 66.8 % (38.7-73.9); Platelet Count 107 T/CUMM (130-400); Red Blood Count 4.37 MC/CUMM (3.8-5.5); Red Cell Distribution Width 15.3 % (9.3-17.3); White Blood Count 5.9 T/CUMM (4-12)
[2016-12-12 05:05] LABS: INR 1.9
[2016-12-12 05:16] LABS: Calcium 8.8 MG/DL (8.5-10.1); Osmolality,Calculated 276.3 MOS/KG (273-304)
[2016-12-12 05:20] LABS: % Iron Saturation 23.1 % (18-50); Ferritin 36.6 ng/ml (8-252)
[2016-12-12 05:48] LABS: PT Patient Result 21.4 SECS
--- NOTE | 2016-12-12 07:43 | EKG Report ---
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
[2016-12-12 08:09] VITALS: BP 142/73
--- NOTE | 2016-12-12 08:46 | Discharge Summary ---
Hospital Course - Hospital Course Hospital Course: 66-year-old female with history of severe peripheral vascular disease, migraine , chronic anticoagulation, hypertension, chronic back pain, depression, hyperthyroidism who was admitted with possible sepsis and leukocytosis. She was hypotensive in the emergency room and had headaches initially. She was evaluated in the emergency room. Initially there was a question about neurological changes but patient denied any complaints. She was started on empiric antibiotics. Blood cultures were done. These have been negative. She had a CT abdomen pelvis done which showed possible nodular changes in the liver consistent with cirrhosis and splenomegaly. She was seen in consultation by Dr. Bay. Her initial hepatitis profile was negative. Her ferritin level has been okay. Patient has been afebrile for past 2 days. There was a question about possible pneumonia on chest x-ray but repeat chest x-ray was okay. She may have had walking pneumonia. She has improved and wants to go home. We will keep her on Ceftin 500 twice daily for 7 days. She will be discharged home today. She has an appointment set up for December 24 in the office. She will keep that appointment. Discussed in detail with patient and her . Diagnosis - Discharge Diagnosis (1) Sepsis Status: Acute (2) Hypertension Status: Acute (3) History of bilateral carotid endarterectomy Status: Acute (4) Chronic back pain Status: Acute (5) Depression Status: Acute (6) Leukocytosis Status: Acute Discharge Plan - Discharge Data Disposition: Disch To Home/Self Care Condition at Discharge: Stable Discharge Diet: advance to your usual diet Activity: resume usual activities as tolerated - Discharge Medications New Cefuroxime Tab [Ceftin] 500 mg PO BID #14 tablet clonazePAM TAB [KlonoPIN] 0.5 mg PO BID PRN tablet PRN Reason: Anxiety Ketoconazole 2% Cream [Nizoral 2% Cream] 1 applic TOP BID applic Continue Niacin 500 mg PO BID Promethazine HCl 25 mg PO Q8H PRN PRN Reason: Nausea Diclofenac 1% Gel [Voltaren 1% Gel] 1 applic TOP BID PRN PRN Reason: Pain Cetirizine HCl [ZyrTEC Cap] 10 mg PO DAILY PRN PRN Reason: Allergy Symptoms Fluoxetine HCl 40 mg PO BEDTIME Betamethasone Valerate [Betamethasone Valerate 0.1% Cream] 1 applic TOP BID PRN PRN Reason: Dry Skin Levothyroxine Sodium 112 mcg PO DAILY amLODIPine [Norvasc] 2.5 mg PO BEDTIME Nitroglycerin Sl Tab [Nitrostat] 0.4 mg SL Q5M PRN PRN Reason: Chest Pain Pantoprazole Sodium [Protonix] 40 mg PO BID Ketoconazole 2% Cream [Nizoral 2% Cream] 1 applic TOP BID PRN PRN Reason: Itching Pregabalin [Lyrica] 200 mg PO BEDTIME Biotin 5,000 mcg PO DAILY Clotrimazole/Betameth Cream [Lotrisone Cream] 1 applic TOP BID PRN PRN Reason: Itching Topiramate [Topamax] 100 mg PO BEDTIME Warfarin [Coumadin] 7.5 mg PO DIRECTED Meperidine Tab [Demerol Tab] 50 mg PO TID PRN PRN Reason: Pain - Follow Up or Referral - Forms/Instructions Additional Discharge Instructions: Keep scheduled appointment on December 24. TCM. Check CBC and a CMP and PT/INR Exam - Constitutional Vitals: Period Temp Pulse Resp BP Sys/Merida Pulse Ox Last 24 Hr 96.9 F-98.2 F 66-76 16-20 128-159/59-79 90-96 Exam: Examination: GENERAL: NAD. HEENT: PERRLA. EOMI. NECK: Neck is supple. CVS: Regular rate and rhythm. S1 and S2 are normal. RESPIRATORY: Lungs are mostly clear. ABDOMEN: Soft and nontender. No hepatosplenomegaly. EXT: No edema. Peripheral pulses are present. FUR REMODELER: Nonfocal SKIN: Warm and dry. MSK: No obvious deformity. Discharge Results Procedures and tests throughout hospitalization: Pending Orders 12/10/16 03:28 Blood Culture Stat 12/10/16 06:00 Urine Culture Stat 12/12/16 03:31 Mitochondrial Antibody (M2) IN AM 12/13/16 04:00 Prothrombin Time INR IN AM 12/14/16 04:00 Prothrombin Time INR IN AM 12/15/16 04:00 Prothrombin Time INR IN AM Labs on day of discharge: Labs from last 24 hours 12/12/16 12/12/16 12/12/16 03:31 03:31 03:31 WBC 5.9 RBC 4.37 Hgb 12.7 Hct 37.8 MCV 86.5 L MCH 29 MCHC 33.6 RDW 15.3 Plt Count 107 L MPV 11.0 Neut % (Auto) 66.8 Lymph % (Auto) 25.9 Barber % (Auto) 5.1 Eos % (Auto) 1.7 Baso % (Auto) 0.2 Neut # (Auto) 3.9 Lymph # (Auto) 1.5 Barber # (Auto) 0.3 Eos # (Auto) 0.1 Baso # (Auto) 0.0 Immature Gran % 0.3 Nucleated RBC % 0.0 Immature Gran # 0.02 Nucleated RBCs # 0.00 INR PT Patient/Control Mix Sodium 141 Potassium 4.0 Chloride 107 Carbon Dioxide 27 Anion Gap 11.0 BUN 5 L Creatinine 0.70 GFR Calculation 100 BUN/Creatinine Ratio 7.00 Glucose 77 Calculated Osmolality 276.3 Calcium 8.8 Iron TIBC % Saturation Ferritin OZZIE Screen Negative (<1:160) 12/12/16 12/12/16 03:31 03:31 WBC RBC Hgb Hct MCV MCH MCHC RDW Plt Count MPV Neut % (Auto) Lymph % (Auto) Barber % (Auto) Eos % (Auto) Baso % (Auto) Neut # (Auto) Lymph # (Auto) Barber # (Auto) Eos # (Auto) Baso # (Auto) Immature Gran % Nucleated RBC % Immature Gran # Nucleated RBCs # INR 1.9 PT Patient/Control Mix 21.4 Sodium Potassium Chloride Carbon Dioxide Anion Gap BUN Creatinine GFR Calculation BUN/Creatinine Ratio Glucose Calculated Osmolality Calcium Iron 79 TIBC 342 % Saturation 23.1 Ferritin 36.6 OZZIE Screen Preliminary micro results at discharge 12/10/16 06:00 Urine Culture - Preliminary Urine,Voided No Growth at 24 hours. 12/10/16 03:28 Blood Culture - Preliminary Blood No growth at 1 day 12/10/16 03:28 Blood Culture - Preliminary Blood No growth at 1 day DS: Provider Date of admission: 12/10/16 04:01 Primary care physician: Chuy Bravo MD Attending physician on admission: Chuy Bravo MD Consults: 12/11/16 07:49 Consult to Occupational Therapy [CONS] Routine Reason for Occupational Therapy: Evaluate and Treat Consult to Physical Therapy [CONS] Routine Reason for Physical Therapy: Evaluate and Treat Consult to Physician [CONS] Routine Comment: Changes of cirrhosis on CT scan Consulting Provider: David Bay Discharging clinician: Chuy Bravo MD
[2016-12-12] MEDS: PANTOPRAZOLE 40 MG TABLET PO SCH (09:17)
[2016-12-12] MEDS: KETOCONAZOLE 2% CREAM 30 GM TUBE TOP SCH (09:18)
[2016-12-12] MEDS: LEVOTHYROXINE 112 MCG TABLET PO SCH (09:18)
[2016-12-12] MEDS: CLOTRIMAZOLE/BETAMETHASONE CREAM 15 GM TUBE TOP SCH (09:18)
[2016-12-12] MEDS: BETAMETHASONE VALERATE 0.1% CREAM 15 GM TUBE TOP SCH (09:19)
[2016-12-12] MEDS: DICLOFENAC 1% GEL 100 GM TUBE TOP SCH (09:19)
== END 2016-12-12 10:07 | disposition home or self-care (01) | DRG 871 ==
LOC: N.ED 23:35 → N.EDINP 12-10 04:01 → N.TELEN 12-10 04:52
PROVIDERS: ADMIT Internal Medicine; ATTEND Internal Medicine

== ENCOUNTER 2018-12-09 10:49 | Inpatient (IN) ==
[2018-12-09] MEDS ORDERED: ACETAMINOPHEN 325 MG TABLET PO PRN (10:59)
[2018-12-09] MEDS ORDERED: PANTOPRAZOLE 40 MG TABLET PO SCH (11:30)
[2018-12-09] MEDS: SODIUM CHLORIDE 0.9% 1,000 ML IV SCH ×2 (13:53→20:52)
[2018-12-09] MEDS: NICOTINE 14 MG/24 HR PATCH TRANSDERM SCH (15:33)
[2018-12-09] MEDS ORDERED: BETAMETHASONE VALERATE 0.1% CREAM 15 GM TUBE TOP PRN ×2 (15:43→17:00)
[2018-12-09] MEDS ORDERED: NITROGLYCERIN SL 0.4 MG TABLET SL PRN (15:43)
[2018-12-09] MEDS ORDERED: ALBUTEROL 2.5 MG/3 ML NEB RESP TX PRN (15:43)
[2018-12-09] MEDS: fentaNYL 25 MCG/HR PATCH TRANSDERM SCH (15:50)
[2018-12-09] MEDS: metroNIDAZOLE INJ 500 MG in PREMIX 1 EACH IV SCH ×2 (16:25→21:02)
[2018-12-09] MEDS: DOCUSATE SODIUM 100 MG CAPSULE PO SCH (20:47)
[2018-12-09] MEDS: TOPIRAMATE 100 MG TABLET PO SCH (20:47)
[2018-12-09] MEDS: PREGABALIN 100 MG CAPSULE PO SCH (20:48)
[2018-12-09] MEDS: FLUoxetine 20 MG CAPSULE PO SCH (20:48)
[2018-12-09] MEDS: tiZANidine 4 MG TABLET PO PRN (21:01)
[2018-12-09 22:57] LABS: Apearance,Urine CLEAR (Clear); Bilirubin,Urine Negative (Negative); Blood, Urine Negative (Negative); Glucose,Urine (UA) Negative (Negative); Granular Casts,Urine 3 /LPF (0-1); Hyaline Casts,Urine 112 /LPF (0-3); Ketones,Urine 20 mg/dL (Negative); Mucus,Urine Occasional /LPF (Occasional); Nitrite,Urine Negative (Negative); Protein,Urine Negative; RBC,Urine 2 /HPF (0-4); Urine Color Yellow (Yellow); Urine Specific Gravity 1.011 (1.001-1.035); Urine Urobilinogen < 2.0 EU/DL (0.2-1.0); WBC,Urine 3 /HPF (0-6)
[2018-12-09] MEDS: CIPROFLOXACIN INJ 400 MG in PREMIX 1 EACH IV SCH (23:58)
[2018-12-10] MEDS: metroNIDAZOLE INJ 500 MG in PREMIX 1 EACH IV SCH ×4 (04:03→23:15)
[2018-12-10 05:22] LABS: Basophils % 0.3 % (0.0-0.8); Eosinophils # 0.1 10*3/uL (0.0-0.87); Eosinophils % 0.7 % (0.00-10.9); Hematocrit 36.8 VOL% (35.7-47.0); Hemoglobin 12.4 GM/DL (12.0-16.0); Immature Granulocytes % 1.1 %; Immature Granulocytes Absolute 0.15 #; Lymphocytes # 1.4 10*3/uL (1.4-4.0); Mean Corpuscular HGB Conc 33.7 GM/DL (32-36); Mean Corpuscular Volume 82.3 FL (87-102); Mean Platelet Volume 10.1 FL (9.6-12.0); Monocytes % 5.1 % (1.7-12.7); Neutrophils % 82.8 % (38.7-73.9); Platelet Count 187 T/CUMM (130-400); Red Blood Count 4.47 MC/CUMM (3.8-5.5); Red Cell Distribution Width 15.9 % (9.3-17.3); White Blood Count 13.6 T/CUMM (4-12)
[2018-12-10 05:42] LABS: Albumin 2.6 G/DL (3.4-5.0); Bilirubin,Total 0.8 MG/DL (0.2-1.0); Calcium 8.5 MG/DL (8.5-10.1); Osmolality,Calculated 267.1 MOS/KG (273-304); Total Protein 6.1 G/DL (6.4-8.3)
[2018-12-10] MEDS: LEVOTHYROXINE 112 MCG TABLET PO SCH (06:12)
[2018-12-10] MEDS: VANCOMYCIN 50 MG/ML 60 ML/BOTTLE PO SCH ×5 (06:12→23:28)
[2018-12-10 07:35] LABS: PT Patient Result 68.3 SECS
[2018-12-10 07:37] LABS: INR 6.4
[2018-12-10] MEDS: NICOTINE 14 MG/24 HR PATCH TRANSDERM SCH (09:17)
[2018-12-10] MEDS: DOCUSATE SODIUM 100 MG CAPSULE PO SCH ×2 (09:18→21:24)
[2018-12-10] MEDS: PREGABALIN 100 MG CAPSULE PO SCH ×3 (09:18→21:24)
[2018-12-10] MEDS: PANTOPRAZOLE 40 MG TABLET PO SCH ×2 (09:18→21:23)
[2018-12-10] MEDS: POTASSIUM CHLORIDE 20 MEQ TABLET PO ONE ×2 (09:19→09:30)
[2018-12-10] MEDS: SODIUM CHLOR 0.9% KCL 40 MEQ 40 MEQ/1,000 ML BAG IV SCH ×2 (09:21→18:11)
[2018-12-10] MEDS: CIPROFLOXACIN INJ 400 MG in PREMIX 1 EACH IV SCH ×2 (09:30→21:23)
[2018-12-10] MEDS: SODIUM CHLORIDE 0.9% 1,000 ML IV SCH (09:58)
[2018-12-10] MEDS: ONDANSETRON 4 MG/2 ML VIAL IV PRN (14:01)
[2018-12-10] MEDS: TOPIRAMATE 100 MG TABLET PO SCH (21:24)
[2018-12-10] MEDS: FLUoxetine 20 MG CAPSULE PO SCH (21:24)
[2018-12-10] MEDS: PROMETHAZINE 25 MG TABLET PO PRN (21:24)
[2018-12-11] MEDS: SODIUM CHLOR 0.9% KCL 40 MEQ 40 MEQ/1,000 ML BAG IV SCH ×3 (01:03→19:19)
[2018-12-11] MEDS: metroNIDAZOLE INJ 500 MG in PREMIX 1 EACH IV SCH ×4 (03:37→22:48)
[2018-12-11] MEDS: VANCOMYCIN 50 MG/ML 60 ML/BOTTLE PO SCH ×3 (05:19→17:39)
[2018-12-11] MEDS: ONDANSETRON 4 MG/2 ML VIAL IV PRN (05:19)
[2018-12-11] MEDS: LEVOTHYROXINE 112 MCG TABLET PO SCH (05:47)
[2018-12-11 06:34] LABS: Basophils # 0.1 10*3/uL (0.0-0.2); Basophils % 0.4 % (0.0-0.8); Eosinophils # 0.1 10*3/uL (0.0-0.87); Eosinophils % 0.7 % (0.00-10.9); Hematocrit 40.4 VOL% (35.7-47.0); Hemoglobin 13.2 GM/DL (12.0-16.0); Immature Granulocytes % 1.2 %; Immature Granulocytes Absolute 0.17 #; Lymphocytes # 1.6 10*3/uL (1.4-4.0); Lymphocytes % 11.1 % (21.3-54.2); Mean Corpuscular HGB Conc 32.7 GM/DL (32-36); Mean Corpuscular Volume 82.8 FL (87-102); Mean Platelet Volume 9.9 FL (9.6-12.0); Monocytes % 5.1 % (1.7-12.7); Neutrophils % 81.5 % (38.7-73.9); Platelet Count 235 T/CUMM (130-400); Red Blood Count 4.88 MC/CUMM (3.8-5.5); White Blood Count 14.2 T/CUMM (4-12)
[2018-12-11 06:45] LABS: PT Patient Result 54.3 SECS
[2018-12-11 06:46] LABS: INR 5.1
[2018-12-11 07:07] LABS: Albumin 2.7 G/DL (3.4-5.0); Bilirubin,Total 0.8 MG/DL (0.2-1.0); Calcium 8.5 MG/DL (8.5-10.1); Osmolality,Calculated 269.8 MOS/KG (273-304); Total Protein 6.4 G/DL (6.4-8.3)
[2018-12-11] MEDS: PREGABALIN 100 MG CAPSULE PO SCH ×3 (09:20→22:46)
[2018-12-11] MEDS: tiZANidine 4 MG TABLET PO PRN (09:20)
[2018-12-11] MEDS: NICOTINE 14 MG/24 HR PATCH TRANSDERM SCH (09:20)
[2018-12-11] MEDS: PANTOPRAZOLE 40 MG TABLET PO SCH ×2 (09:20→22:46)
[2018-12-11] MEDS: DOCUSATE SODIUM 100 MG CAPSULE PO SCH ×2 (09:37→22:53)
[2018-12-11] MEDS: CIPROFLOXACIN INJ 400 MG in PREMIX 1 EACH IV SCH (10:56)
[2018-12-11] MEDS: POTASSIUM CHLORIDE RIDER 10 MEQ in PREMIX 1 EACH IV SCH ×4 (13:03→17:44)
[2018-12-11] MEDS: FLUoxetine 20 MG CAPSULE PO SCH (22:46)
[2018-12-11] MEDS: TOPIRAMATE 100 MG TABLET PO SCH (22:46)
[2018-12-12] MEDS: CIPROFLOXACIN INJ 400 MG in PREMIX 1 EACH IV SCH ×2 (00:20→09:21)
[2018-12-12] MEDS: VANCOMYCIN 50 MG/ML 60 ML/BOTTLE PO SCH ×4 (00:20→17:48)
[2018-12-12] MEDS: SODIUM CHLOR 0.9% KCL 40 MEQ 40 MEQ/1,000 ML BAG IV SCH ×3 (05:26→22:17)
[2018-12-12] MEDS: metroNIDAZOLE INJ 500 MG in PREMIX 1 EACH IV SCH ×4 (05:27→22:15)
[2018-12-12] MEDS: LEVOTHYROXINE 112 MCG TABLET PO SCH (05:31)
[2018-12-12 06:11] LABS: Basophils % 0.3 % (0.0-0.8); Eosinophils # 0.1 10*3/uL (0.0-0.87); Eosinophils % 1.5 % (0.00-10.9); Hematocrit 35.6 VOL% (35.7-47.0); Hemoglobin 11.5 GM/DL (12.0-16.0); Immature Granulocytes % 1.5 %; Immature Granulocytes Absolute 0.09 #; Lymphocytes # 1.1 10*3/uL (1.4-4.0); Lymphocytes % 19.2 % (21.3-54.2); Mean Corpuscular HGB Conc 32.3 GM/DL (32-36); Mean Corpuscular Volume 83.8 FL (87-102); Mean Platelet Volume 10.2 FL (9.6-12.0); Monocytes % 5.7 % (1.7-12.7); Neutrophils % 71.8 % (38.7-73.9); Platelet Count 177 T/CUMM (130-400); Red Blood Count 4.25 MC/CUMM (3.8-5.5); Red Cell Distribution Width 16.3 % (9.3-17.3)
[2018-12-12 06:14] LABS: INR 3.5
[2018-12-12 06:20] LABS: INR 3.5
[2018-12-12 06:26] LABS: PT Patient Result 37.5 SECS
[2018-12-12 06:27] LABS: PT Patient Result 37.5 SECS
[2018-12-12 06:48] LABS: Albumin 2.6 G/DL (3.4-5.0); Bilirubin,Total 0.7 MG/DL (0.2-1.0); Calcium 8.5 MG/DL (8.5-10.1); Thyroid Stimulating Hormone 2.99 uIU/ml (0.358-3.74); Total Protein 5.6 G/DL (6.4-8.3)
[2018-12-12] MEDS: NICOTINE 14 MG/24 HR PATCH TRANSDERM SCH (09:19)
[2018-12-12] MEDS: PREGABALIN 100 MG CAPSULE PO SCH ×3 (09:19→22:16)
[2018-12-12] MEDS: PANTOPRAZOLE 40 MG TABLET PO SCH ×2 (10:09→22:16)
[2018-12-12] MEDS: DOCUSATE SODIUM 100 MG CAPSULE PO SCH ×2 (10:17→23:18)
[2018-12-12] MEDS: fentaNYL 25 MCG/HR PATCH TRANSDERM SCH (15:42)
[2018-12-12] MEDS: TOPIRAMATE 100 MG TABLET PO SCH (22:16)
[2018-12-12] MEDS: FLUoxetine 20 MG CAPSULE PO SCH (22:16)
[2018-12-13] MEDS: VANCOMYCIN 50 MG/ML 60 ML/BOTTLE PO SCH ×4 (00:53→18:05)
[2018-12-13] MEDS: metroNIDAZOLE INJ 500 MG in PREMIX 1 EACH IV SCH ×4 (04:36→21:02)
[2018-12-13] MEDS: SODIUM CHLOR 0.9% KCL 40 MEQ 40 MEQ/1,000 ML BAG IV SCH ×4 (04:36→18:10)
[2018-12-13 05:16] LABS: Basophils % 0.4 % (0.0-0.8); Eosinophils # 0.1 10*3/uL (0.0-0.87); Eosinophils % 1.5 % (0.00-10.9); Hematocrit 38.5 VOL% (35.7-47.0); Hemoglobin 12.4 GM/DL (12.0-16.0); Immature Granulocytes % 2.2 %; Lymphocytes # 1.7 10*3/uL (1.4-4.0); Lymphocytes % 19.6 % (21.3-54.2); Mean Corpuscular HGB Conc 32.2 GM/DL (32-36); Mean Corpuscular Volume 84.4 FL (87-102); Mean Platelet Volume 10.3 FL (9.6-12.0); Monocytes % 4.4 % (1.7-12.7); Neutrophils % 71.9 % (38.7-73.9); Platelet Count 223 T/CUMM (130-400); Red Blood Count 4.56 MC/CUMM (3.8-5.5); Red Cell Distribution Width 17.1 % (9.3-17.3); White Blood Count 8.9 T/CUMM (4-12)
[2018-12-13 05:28] LABS: INR 2.6
[2018-12-13] MEDS: LEVOTHYROXINE 112 MCG TABLET PO SCH (05:40)
[2018-12-13 05:45] LABS: Alanine Aminotransferase 17 U/L (13-56); Albumin 2.7 G/DL (3.4-5.0); Alkaline Phosphatase 179 U/L (45-117); Aspartate Amino Transferase 25 U/L (0-37); Bilirubin,Total < 0.39 MG/DL (0.2-1.0); Blood Urea Nitrogen 2 MG/DL (7-18); Calcium 8.4 MG/DL (8.5-10.1); Glucose 88 MG/DL (74-106); Osmolality,Calculated 277.1 MOS/KG (273-304); Total Protein 5.9 G/DL (6.4-8.3)
[2018-12-13 05:57] LABS: PT Patient Result 27.9 SECS
[2018-12-13] MEDS: PANTOPRAZOLE 40 MG TABLET PO SCH ×2 (09:01→21:02)
[2018-12-13] MEDS: PREGABALIN 100 MG CAPSULE PO SCH ×3 (09:01→21:02)
[2018-12-13] MEDS: NICOTINE 14 MG/24 HR PATCH TRANSDERM SCH (09:01)
[2018-12-13] MEDS: DOCUSATE SODIUM 100 MG CAPSULE PO SCH ×2 (09:06→21:02)
[2018-12-13] MEDS: PROMETHAZINE 25 MG TABLET PO PRN (16:42)
[2018-12-13] MEDS: tiZANidine 4 MG TABLET PO PRN (21:01)
[2018-12-13] MEDS: FLUoxetine 20 MG CAPSULE PO SCH (21:02)
[2018-12-13] MEDS: TOPIRAMATE 100 MG TABLET PO SCH (21:02)
[2018-12-14] MEDS: VANCOMYCIN 50 MG/ML 60 ML/BOTTLE PO SCH ×4 (00:18→17:21)
[2018-12-14] MEDS: metroNIDAZOLE INJ 500 MG in PREMIX 1 EACH IV SCH (03:10)
[2018-12-14 05:33] LABS: Basophils % 0.2 % (0.0-0.8); Eosinophils # 0.1 10*3/uL (0.0-0.87); Eosinophils % 1.3 % (0.00-10.9); Hematocrit 32.2 VOL% (35.7-47.0); Hemoglobin 10.5 GM/DL (12.0-16.0); Immature Granulocytes % 1.8 %; Immature Granulocytes Absolute 0.11 #; Lymphocytes # 1.3 10*3/uL (1.4-4.0); Lymphocytes % 20.8 % (21.3-54.2); Mean Corpuscular HGB Conc 32.6 GM/DL (32-36); Mean Corpuscular Volume 84.5 FL (87-102); Mean Platelet Volume 10.2 FL (9.6-12.0); Monocytes % 4.6 % (1.7-12.7); Neutrophils % 71.3 % (38.7-73.9); Platelet Count 173 T/CUMM (130-400); Red Blood Count 3.81 MC/CUMM (3.8-5.5); Red Cell Distribution Width 17.3 % (9.3-17.3); White Blood Count 6.1 T/CUMM (4-12)
[2018-12-14 05:50] LABS: INR 1.5; PT Patient Result 16.1 SECS
[2018-12-14] MEDS: LEVOTHYROXINE 112 MCG TABLET PO SCH (06:08)
[2018-12-14] MEDS: SODIUM CHLOR 0.9% KCL 40 MEQ 40 MEQ/1,000 ML BAG IV SCH ×2 (06:15→08:45)
[2018-12-14] MEDS: NICOTINE 14 MG/24 HR PATCH TRANSDERM SCH (08:43)
[2018-12-14] MEDS: DOCUSATE SODIUM 100 MG CAPSULE PO SCH ×2 (08:44→21:21)
[2018-12-14] MEDS: PREGABALIN 100 MG CAPSULE PO SCH ×3 (08:44→21:21)
[2018-12-14] MEDS: PANTOPRAZOLE 40 MG TABLET PO SCH ×2 (08:44→21:21)
[2018-12-14] MEDS ORDERED: FUROSEMIDE 40 MG/4 ML VIAL IV ONE (16:16)
[2018-12-14] MEDS ORDERED: WARFARIN 7.5 MG TABLET PO SCH (18:00)
[2018-12-14] MEDS: TOPIRAMATE 100 MG TABLET PO SCH (21:21)
[2018-12-14] MEDS: FLUoxetine 20 MG CAPSULE PO SCH (21:21)
[2018-12-14] MEDS: PROMETHAZINE 25 MG TABLET PO PRN (21:25)
[2018-12-15] MEDS: VANCOMYCIN 50 MG/ML 60 ML/BOTTLE PO SCH ×4 (00:04→17:48)
[2018-12-15 05:51] LABS: INR 1.2; PT Patient Result 12.6 SECS
[2018-12-15 05:53] LABS: Basophils % 0.3 % (0.0-0.8); Eosinophils # 0.1 10*3/uL (0.0-0.87); Eosinophils % 1.4 % (0.00-10.9); Hematocrit 35.6 VOL% (35.7-47.0); Hemoglobin 11.3 GM/DL (12.0-16.0); INR 1.1; Immature Granulocytes % 2.1 %; Immature Granulocytes Absolute 0.14 #; Lymphocytes # 1.5 10*3/uL (1.4-4.0); Lymphocytes % 23.2 % (21.3-54.2); Mean Corpuscular HGB Conc 31.7 GM/DL (32-36); Mean Corpuscular Volume 85.2 FL (87-102); Mean Platelet Volume 10.1 FL (9.6-12.0); Monocytes % 4.7 % (1.7-12.7); Neutrophils % 68.3 % (38.7-73.9); PT Patient Result 12.3 SECS; Partial Thromboplastin Time 30.3 SECS (0-40); Platelet Count 183 T/CUMM (130-400); Red Blood Count 4.18 MC/CUMM (3.8-5.5); Red Cell Distribution Width 17.5 % (9.3-17.3); White Blood Count 6.6 T/CUMM (4-12)
[2018-12-15 06:16] LABS: Calcium 8.5 MG/DL (8.5-10.1)
[2018-12-15] MEDS: LEVOTHYROXINE 112 MCG TABLET PO SCH (07:19)
[2018-12-15] MEDS: PREGABALIN 100 MG CAPSULE PO SCH ×3 (11:17→20:59)
[2018-12-15] MEDS: DOCUSATE SODIUM 100 MG CAPSULE PO SCH ×2 (11:17→20:58)
[2018-12-15] MEDS: PROMETHAZINE 25 MG TABLET PO PRN (11:17)
[2018-12-15] MEDS: PANTOPRAZOLE 40 MG TABLET PO SCH ×2 (11:17→20:59)
[2018-12-15] MEDS: NICOTINE 14 MG/24 HR PATCH TRANSDERM SCH (11:18)
[2018-12-15] MEDS: fentaNYL 25 MCG/HR PATCH TRANSDERM SCH (17:48)
[2018-12-15] MEDS ORDERED: WARFARIN 7.5 MG TABLET PO SCH (18:00)
[2018-12-15] MEDS: FLUoxetine 20 MG CAPSULE PO SCH (20:59)
[2018-12-15] MEDS: TOPIRAMATE 100 MG TABLET PO SCH (20:59)
[2018-12-15] MEDS: tiZANidine 4 MG TABLET PO PRN (21:03)
[2018-12-16] MEDS: VANCOMYCIN 50 MG/ML 60 ML/BOTTLE PO SCH ×2 (01:00→05:56)
[2018-12-16 05:42] LABS: Basophils % 0.3 % (0.0-0.8); Eosinophils # 0.1 10*3/uL (0.0-0.87); Eosinophils % 0.9 % (0.00-10.9); Hematocrit 31.9 VOL% (35.7-47.0); Hemoglobin 10.4 GM/DL (12.0-16.0); Immature Granulocytes % 1.6 %; Lymphocytes # 1.2 10*3/uL (1.4-4.0); Lymphocytes % 18.6 % (21.3-54.2); Mean Corpuscular HGB Conc 32.6 GM/DL (32-36); Mean Corpuscular Volume 84.6 FL (87-102); Mean Platelet Volume 10.8 FL (9.6-12.0); Monocytes % 4.6 % (1.7-12.7); Platelet Count 157 T/CUMM (130-400); Red Blood Count 3.77 MC/CUMM (3.8-5.5); White Blood Count 6.4 T/CUMM (4-12)
[2018-12-16] MEDS: LEVOTHYROXINE 112 MCG TABLET PO SCH (05:55)
[2018-12-16 06:01] LABS: INR 1.1; PT Patient Result 11.7 SECS
[2018-12-16 06:06] LABS: Calcium 8.7 MG/DL (8.5-10.1)
[2018-12-16] MEDS: NICOTINE 14 MG/24 HR PATCH TRANSDERM SCH (10:02)
[2018-12-16] MEDS: PANTOPRAZOLE 40 MG TABLET PO SCH (10:02)
[2018-12-16] MEDS: DOCUSATE SODIUM 100 MG CAPSULE PO SCH (10:02)
[2018-12-16] MEDS: PREGABALIN 100 MG CAPSULE PO SCH (10:02)
[2018-12-16 10:20] VITALS: BP 113/70
== END 2018-12-16 12:21 | disposition home health service (06) | DRG 372 ==
LOC: N.5E 11:36
PROVIDERS: ADMIT Internal Medicine; ATTEND Internal Medicine

== ENCOUNTER 2019-02-12 16:19 | Inpatient (IN) ==
[2019-02-12] MEDS ORDERED: SODIUM CHLORIDE 0.9% 1,000 ML IV STA (16:54)
[2019-02-12 17:38] LABS: Basophils # 0.1 10*3/uL (0.0-0.2); Basophils % 0.3 % (0.0-0.8); Eosinophils # 0.1 10*3/uL (0.0-0.87); Eosinophils % 0.5 % (0.00-10.9); Hematocrit 41.9 VOL% (35.7-47.0); Immature Granulocytes % 0.7 %; Immature Granulocytes Absolute 0.12 #; Lymphocytes # 1.9 10*3/uL (1.4-4.0); Lymphocytes % 10.3 % (21.3-54.2); Mean Corpuscular HGB Conc 33.4 GM/DL (32-36); Mean Corpuscular Volume 83.1 FL (87-102); Mean Platelet Volume 10.1 FL (9.6-12.0); Monocytes % 4.2 % (1.7-12.7); Platelet Count 152 T/CUMM (130-400); Red Blood Count 5.04 MC/CUMM (3.8-5.5); Red Cell Distribution Width 15.9 % (9.3-17.3)
[2019-02-12 17:46] LABS: INR 1.9; PT Patient Result 20.5 SECS (9.6-12.2)
[2019-02-12 17:55] LABS: Albumin 3.6 G/DL (3.4-5.0); Bilirubin,Total 0.8 MG/DL (0.2-1.0); Calcium 8.9 MG/DL (8.5-10.1); Total Protein 7.8 G/DL (6.4-8.3)
[2019-02-12] MEDS ORDERED: CEFEPIME 2,000 MG in SODIUM CHLORIDE 0.9% 100 ML IV STA ×2 (18:33→18:35)
[2019-02-12] MEDS ORDERED: metroNIDAZOLE INJ 500 MG in PREMIX 1 EACH IV STA (18:33)
[2019-02-12] MEDS ORDERED: ACETAMINOPHEN 325 MG TABLET PO PRN (18:41)
[2019-02-12] MEDS ORDERED: ONDANSETRON 4 MG/2 ML VIAL IV PRN (18:41)
[2019-02-12 19:43] LABS: Apearance,Urine CLEAR (Clear); Bilirubin,Urine Negative (Negative); Blood, Urine Negative (Negative); Glucose,Urine (UA) Negative (Negative); Hyaline Casts,Urine 44 /LPF (0-3); Ketones,Urine Negative (Negative); Mucus,Urine Occasional /LPF (Occasional); Nitrite,Urine Negative (Negative); Protein,Urine Negative; RBC,Urine 1 /HPF (0-4); Urine Color Yellow (Yellow); Urine Specific Gravity 1.044 (1.001-1.035); Urine Urobilinogen < 2.0 EU/DL (0.2-1.0); WBC,Urine <1 /HPF (0-6)
[2019-02-12] MEDS ORDERED: NITROGLYCERIN SL 0.4 MG TABLET SL PRN (20:53)
[2019-02-12] MEDS ORDERED: ALBUTEROL 2.5 MG/3 ML NEB RESP TX PRN (20:53)
[2019-02-12] MEDS ORDERED: amLODIPine 2.5 MG TABLET PO SCH (21:00)
[2019-02-12] MEDS: FLUoxetine 20 MG CAPSULE PO SCH (21:24)
[2019-02-12] MEDS: PREGABALIN 100 MG CAPSULE PO SCH (21:24)
[2019-02-12] MEDS: HYDROmorphone 2 MG TABLET PO PRN (21:25)
[2019-02-12] MEDS: TOPIRAMATE 100 MG TABLET PO SCH (21:27)
[2019-02-12] MEDS: WARFARIN 7.5 MG TABLET PO SCH (21:27)
[2019-02-12] MEDS: PROMETHAZINE 25 MG TABLET PO PRN (21:27)
[2019-02-12] MEDS: tiZANidine 4 MG TABLET PO PRN (21:28)
[2019-02-12] MEDS: fentaNYL 25 MCG/HR PATCH TRANSDERM SCH (21:28)
[2019-02-12] MEDS: VANCOMYCIN 50 MG/ML 60 ML/BOTTLE PO SCH (21:33)
[2019-02-12] MEDS: DEXTROSE 5% NACL 0.9% 1,000 ML IV SCH (22:00)
[2019-02-12] MEDS: NICOTINE 21 MG/24 HR PATCH TRANSDERM SCH (22:00)
[2019-02-12] MEDS: POTASSIUM CHLORIDE 20 MEQ TABLET PO PRN (22:01)
[2019-02-13] MEDS: POTASSIUM CHLORIDE 20 MEQ TABLET PO PRN ×5 (02:09→18:10)
[2019-02-13] MEDS: VANCOMYCIN 50 MG/ML 60 ML/BOTTLE PO SCH ×4 (02:09→20:56)
[2019-02-13] MEDS: DEXTROSE 5% NACL 0.9% 1,000 ML IV SCH ×3 (05:24→17:13)
[2019-02-13 05:40] LABS: Basophils % 0.1 % (0.0-0.8); Eosinophils # 0.1 10*3/uL (0.0-0.87); Eosinophils % 1.3 % (0.00-10.9); Hematocrit 35.2 VOL% (35.7-47.0); Hemoglobin 11.4 GM/DL (12.0-16.0); Immature Granulocytes % 0.5 %; Immature Granulocytes Absolute 0.05 #; Lymphocytes # 1.3 10*3/uL (1.4-4.0); Lymphocytes % 13.3 % (21.3-54.2); Mean Corpuscular HGB Conc 32.4 GM/DL (32-36); Mean Platelet Volume 11.1 FL (9.6-12.0); Monocytes % 4.6 % (1.7-12.7); Neutrophils % 80.2 % (38.7-73.9); Platelet Count 137 T/CUMM (130-400); Red Blood Count 4.14 MC/CUMM (3.8-5.5); Red Cell Distribution Width 16.2 % (9.3-17.3); White Blood Count 9.9 T/CUMM (4-12)
[2019-02-13 05:56] LABS: INR 1.9; PT Patient Result 20.9 SECS (9.6-12.2)
[2019-02-13 06:05] LABS: Calcium 8.3 MG/DL (8.5-10.1); Osmolality,Calculated 274.5 MOS/KG (273-304)
[2019-02-13] MEDS: LEVOTHYROXINE 112 MCG TABLET PO SCH (06:13)
[2019-02-13] MEDS: PROMETHAZINE 25 MG TABLET PO PRN (06:51)
[2019-02-13] MEDS: tiZANidine 4 MG TABLET PO PRN ×2 (06:52→21:10)
[2019-02-13] MEDS ORDERED: SODIUM CHLORIDE 0.9% 500 ML IV ONE (08:05)
[2019-02-13] MEDS: PANTOPRAZOLE 40 MG VIAL IV SCH (08:53)
[2019-02-13] MEDS: PREGABALIN 100 MG CAPSULE PO SCH ×2 (08:53→20:54)
[2019-02-13] MEDS: NICOTINE 21 MG/24 HR PATCH TRANSDERM SCH (08:53)
[2019-02-13] MEDS: WARFARIN 7.5 MG TABLET PO SCH (20:54)
[2019-02-13] MEDS: TOPIRAMATE 100 MG TABLET PO SCH (20:54)
[2019-02-13] MEDS: FLUoxetine 20 MG CAPSULE PO SCH (20:54)
[2019-02-14] MEDS: DEXTROSE 5% NACL 0.9% 1,000 ML IV SCH ×3 (00:25→22:52)
[2019-02-14] MEDS: VANCOMYCIN 50 MG/ML 60 ML/BOTTLE PO SCH ×4 (03:47→22:56)
[2019-02-14 05:57] LABS: Eosinophils # 0.1 10*3/uL (0.0-0.87); Eosinophils % 1.8 % (0.00-10.9); Hematocrit 34.3 VOL% (35.7-47.0); Hemoglobin 10.9 GM/DL (12.0-16.0); Immature Granulocytes % 0.5 %; Immature Granulocytes Absolute 0.02 #; Lymphocytes # 1.1 10*3/uL (1.4-4.0); Mean Corpuscular HGB Conc 31.8 GM/DL (32-36); Mean Corpuscular Volume 86.8 FL (87-102); Mean Platelet Volume 10.2 FL (9.6-12.0); Monocytes % 5.5 % (1.7-12.7); Neutrophils % 64.2 % (38.7-73.9); Platelet Count 110 T/CUMM (130-400); Red Blood Count 3.95 MC/CUMM (3.8-5.5); Red Cell Distribution Width 16.2 % (9.3-17.3)
[2019-02-14 06:00] LABS: INR 2.3
[2019-02-14 06:18] LABS: PT Patient Result 24.7 SECS (9.6-12.2)
[2019-02-14] MEDS: LEVOTHYROXINE 112 MCG TABLET PO SCH (06:22)
[2019-02-14 06:41] LABS: Albumin 2.6 G/DL (3.4-5.0); Bilirubin,Total 0.5 MG/DL (0.2-1.0); Total Protein 5.6 G/DL (6.4-8.3)
[2019-02-14] MEDS ORDERED: LIDOCAINE 2% 5 ML VIAL ONE (09:00)
[2019-02-14] MEDS ORDERED: propofoL 200 MG/20 ML VIAL IV ONE (09:00)
[2019-02-14] MEDS: PREGABALIN 100 MG CAPSULE PO SCH ×2 (10:01→22:54)
[2019-02-14] MEDS: PANTOPRAZOLE 40 MG VIAL IV SCH (10:01)
[2019-02-14] MEDS: NICOTINE 21 MG/24 HR PATCH TRANSDERM SCH (10:02)
[2019-02-14] MEDS: tiZANidine 4 MG TABLET PO PRN ×2 (10:47→22:54)
[2019-02-14] MEDS: LACTATED RINGERS 1,000 ML IV SCH (12:23)
[2019-02-14] MEDS: FLUoxetine 20 MG CAPSULE PO SCH (22:54)
[2019-02-14] MEDS: TOPIRAMATE 100 MG TABLET PO SCH (22:54)
[2019-02-14] MEDS: WARFARIN 7.5 MG TABLET PO SCH (22:54)
[2019-02-14] MEDS: POTASSIUM CHLORIDE 20 MEQ TABLET PO PRN (23:05)
[2019-02-14] MEDS: PROMETHAZINE 25 MG TABLET PO PRN (23:05)
[2019-02-14] MEDS: HYDROmorphone 2 MG TABLET PO PRN (23:14)
[2019-02-15] MEDS: VANCOMYCIN 50 MG/ML 60 ML/BOTTLE PO SCH ×4 (02:26→22:14)
[2019-02-15 05:27] LABS: Basophils % 0.3 % (0.0-0.8); Eosinophils # 0.1 10*3/uL (0.0-0.87); Eosinophils % 1.4 % (0.00-10.9); Hematocrit 34.2 VOL% (35.7-47.0); Hemoglobin 10.8 GM/DL (12.0-16.0); Immature Granulocytes % 0.3 %; Immature Granulocytes Absolute 0.01 #; Lymphocytes # 1.1 10*3/uL (1.4-4.0); Lymphocytes % 32.7 % (21.3-54.2); Mean Corpuscular HGB Conc 31.6 GM/DL (32-36); Mean Corpuscular Volume 86.8 FL (87-102); Mean Platelet Volume 11.2 FL (9.6-12.0); Monocytes % 5.8 % (1.7-12.7); Neutrophils % 59.5 % (38.7-73.9); Platelet Count 122 T/CUMM (130-400); Red Blood Count 3.94 MC/CUMM (3.8-5.5); Red Cell Distribution Width 16.3 % (9.3-17.3); White Blood Count 3.5 T/CUMM (4-12)
[2019-02-15 05:44] LABS: INR 2.7
[2019-02-15 05:47] LABS: PT Patient Result 29.5 SECS (9.6-12.2)
[2019-02-15 06:06] LABS: Albumin 2.6 G/DL (3.4-5.0); Bilirubin,Total 0.5 MG/DL (0.2-1.0); Calcium 8.2 MG/DL (8.5-10.1); Osmolality,Calculated 286.6 MOS/KG (273-304); Total Protein 5.6 G/DL (6.4-8.3)
[2019-02-15] MEDS: LEVOTHYROXINE 112 MCG TABLET PO SCH (06:13)
[2019-02-15] MEDS: DEXTROSE 5% NACL 0.9% 1,000 ML IV SCH (06:14)
[2019-02-15] MEDS: LACTATED RINGERS 1,000 ML IV SCH (07:54)
[2019-02-15] MEDS: NICOTINE 21 MG/24 HR PATCH TRANSDERM SCH (08:04)
[2019-02-15] MEDS: PREGABALIN 100 MG CAPSULE PO SCH ×2 (08:05→22:13)
[2019-02-15] MEDS: tiZANidine 4 MG TABLET PO PRN ×3 (08:06→22:13)
[2019-02-15] MEDS: PROMETHAZINE 25 MG TABLET PO PRN ×2 (08:06→22:13)
[2019-02-15] MEDS: PANTOPRAZOLE 40 MG VIAL IV SCH (08:10)
[2019-02-15] MEDS ORDERED: ALBUTEROL/IPRATROPIUM 3 ML NEB RESP TX SCH (15:00)
[2019-02-15] MEDS: ALBUTEROL/IPRATROPIUM 3 ML NEB RESP TX SCH (19:48)
[2019-02-15] MEDS: FLUoxetine 20 MG CAPSULE PO SCH (22:13)
[2019-02-15] MEDS: WARFARIN 7.5 MG TABLET PO SCH (22:13)
[2019-02-15] MEDS: TOPIRAMATE 100 MG TABLET PO SCH (22:13)
[2019-02-15] MEDS: fentaNYL 25 MCG/HR PATCH TRANSDERM SCH (22:14)
[2019-02-16] MEDS: VANCOMYCIN 50 MG/ML 60 ML/BOTTLE PO SCH ×4 (05:15→20:35)
[2019-02-16] MEDS: LEVOTHYROXINE 112 MCG TABLET PO SCH (05:16)
[2019-02-16 06:25] LABS: Basophils % 0.3 % (0.0-0.8); Eosinophils # 0.1 10*3/uL (0.0-0.87); Eosinophils % 2.3 % (0.00-10.9); Hematocrit 35.2 VOL% (35.7-47.0); Hemoglobin 11.2 GM/DL (12.0-16.0); Immature Granulocytes % 0.7 %; Immature Granulocytes Absolute 0.02 #; Lymphocytes % 31.9 % (21.3-54.2); Mean Corpuscular HGB Conc 31.8 GM/DL (32-36); Mean Corpuscular Volume 86.3 FL (87-102); Mean Platelet Volume 10.5 FL (9.6-12.0); Monocytes % 5.9 % (1.7-12.7); Neutrophils % 58.9 % (38.7-73.9); Platelet Count 114 T/CUMM (130-400); Red Blood Count 4.08 MC/CUMM (3.8-5.5); Red Cell Distribution Width 16.6 % (9.3-17.3)
[2019-02-16 06:42] LABS: PT Patient Result 32.7 SECS (9.6-12.2)
[2019-02-16] MEDS: DEXTROSE 5% NACL 0.9% 1,000 ML IV SCH ×3 (06:42→17:26)
[2019-02-16] MEDS: tiZANidine 4 MG TABLET PO PRN ×2 (06:50→14:29)
[2019-02-16 06:56] LABS: Alanine Aminotransferase 19 U/L (13-56); Albumin 2.9 G/DL (3.4-5.0); Alkaline Phosphatase 143 U/L (45-117); Aspartate Amino Transferase 22 U/L (0-37); Bilirubin,Total < 0.39 MG/DL (0.2-1.0); Blood Urea Nitrogen 3 MG/DL (7-18); Calcium 8.6 MG/DL (8.5-10.1); Estimated Glom Filtration Rate 97 ML/MIN; Glucose 75 MG/DL (74-106); Osmolality,Calculated 281.8 MOS/KG (273-304)
[2019-02-16] MEDS: ALBUTEROL/IPRATROPIUM 3 ML NEB RESP TX SCH ×3 (07:10→19:08)
[2019-02-16] MEDS: PANTOPRAZOLE 40 MG TABLET PO SCH (10:20)
[2019-02-16] MEDS: PREGABALIN 100 MG CAPSULE PO SCH ×2 (10:20→20:36)
[2019-02-16] MEDS: NICOTINE 21 MG/24 HR PATCH TRANSDERM SCH (10:20)
[2019-02-16] MEDS ORDERED: BISACODYL 5 MG TABLET PO ONE (12:00)
[2019-02-16] MEDS ORDERED: PHYTONADIONE 10 MG/1 ML AMP SUBCUT ONE (13:51)
[2019-02-16] MEDS: PROMETHAZINE 25 MG TABLET PO PRN (14:28)
[2019-02-16] MEDS ORDERED: POLYETHYLENE GLYCOL POWDER 255 GM BOTTLE PO ONE (18:00)
[2019-02-16] MEDS: FLUoxetine 20 MG CAPSULE PO SCH (20:36)
[2019-02-16] MEDS: TOPIRAMATE 100 MG TABLET PO SCH (20:36)
[2019-02-16] MEDS: POTASSIUM CHLORIDE 20 MEQ TABLET PO PRN ×2 (20:36→22:34)
[2019-02-16] MEDS: HYDROmorphone 2 MG TABLET PO PRN (20:48)
[2019-02-17] MEDS: VANCOMYCIN 50 MG/ML 60 ML/BOTTLE PO SCH ×4 (04:27→21:10)
[2019-02-17 04:44] LABS: INR 2.3
[2019-02-17 04:45] LABS: Basophils % 0.4 % (0.0-0.8); Eosinophils # 0.1 10*3/uL (0.0-0.87); Eosinophils % 1.3 % (0.00-10.9); Hematocrit 33.7 VOL% (35.7-47.0); Hemoglobin 10.8 GM/DL (12.0-16.0); Immature Granulocytes % 0.7 %; Immature Granulocytes Absolute 0.03 #; Lymphocytes # 1.2 10*3/uL (1.4-4.0); Lymphocytes % 26.9 % (21.3-54.2); Mean Corpuscular Volume 86.4 FL (87-102); Mean Platelet Volume 10.9 FL (9.6-12.0); Monocytes % 6.5 % (1.7-12.7); Neutrophils % 64.2 % (38.7-73.9); Platelet Count 113 T/CUMM (130-400); Red Cell Distribution Width 16.5 % (9.3-17.3); White Blood Count 4.5 T/CUMM (4-12)
[2019-02-17 05:02] LABS: PT Patient Result 24.7 SECS (9.6-12.2)
[2019-02-17 05:18] LABS: Calcium 8.6 MG/DL (8.5-10.1); Osmolality,Calculated 283.7 MOS/KG (273-304)
[2019-02-17] MEDS: LEVOTHYROXINE 112 MCG TABLET PO SCH (05:29)
[2019-02-17] MEDS ORDERED: MAGNESIUM CITRATE 300 ML BOTTLE PO ONE (06:09)
[2019-02-17] MEDS: DEXTROSE 5% NACL 0.9% 1,000 ML IV SCH ×3 (06:20→23:10)
[2019-02-17] MEDS: ALBUTEROL/IPRATROPIUM 3 ML NEB RESP TX SCH ×3 (07:11→19:53)
[2019-02-17] MEDS ORDERED: LACTATED RINGERS 1,000 ML IV SCH (08:00)
[2019-02-17] MEDS: NICOTINE 21 MG/24 HR PATCH TRANSDERM SCH (09:21)
[2019-02-17] MEDS: PANTOPRAZOLE 40 MG TABLET PO SCH (09:21)
[2019-02-17] MEDS: PREGABALIN 100 MG CAPSULE PO SCH ×2 (09:21→20:51)
[2019-02-17] MEDS: FLUTICASONE/SALMETEROL 250-50 DISKUS 14 DOSE INH SCH ×2 (10:30→20:51)
[2019-02-17] MEDS ORDERED: PHENYLEPHRINE 1 MG/10 ML SYRINGE IV ONE (12:00)
[2019-02-17] MEDS ORDERED: propofoL 200 MG/20 ML VIAL IV ONE (12:00)
[2019-02-17] MEDS ORDERED: LIDOCAINE 100 MG/5 ML SYRINGE ONE (12:00)
[2019-02-17] MEDS: tiZANidine 4 MG TABLET PO PRN ×2 (16:19→19:34)
[2019-02-17] MEDS: TOPIRAMATE 100 MG TABLET PO SCH (20:52)
[2019-02-17] MEDS: HYDROmorphone 2 MG TABLET PO PRN (20:52)
[2019-02-17] MEDS: FLUoxetine 20 MG CAPSULE PO SCH (20:52)
[2019-02-17] MEDS: PROMETHAZINE 25 MG TABLET PO PRN (20:52)
[2019-02-18] MEDS: VANCOMYCIN 50 MG/ML 60 ML/BOTTLE PO SCH ×4 (02:45→21:50)
[2019-02-18 05:52] LABS: Basophils % 0.2 % (0.0-0.8); Eosinophils % 0.9 % (0.00-10.9); Hemoglobin 9.9 GM/DL (12.0-16.0); Immature Granulocytes % 0.2 %; Immature Granulocytes Absolute 0.01 #; Lymphocytes # 1.1 10*3/uL (1.4-4.0); Lymphocytes % 23.7 % (21.3-54.2); Mean Corpuscular HGB Conc 31.9 GM/DL (32-36); Mean Corpuscular Volume 86.6 FL (87-102); Mean Platelet Volume 11.3 FL (9.6-12.0); Platelet Count 106 T/CUMM (130-400); Red Blood Count 3.58 MC/CUMM (3.8-5.5); Red Cell Distribution Width 16.4 % (9.3-17.3); White Blood Count 4.5 T/CUMM (4-12)
[2019-02-18] MEDS: LEVOTHYROXINE 112 MCG TABLET PO SCH (05:53)
[2019-02-18 06:01] LABS: INR 1.1; PT Patient Result 12.3 SECS (9.6-12.2)
[2019-02-18 06:12] LABS: Calcium 8.2 MG/DL (8.5-10.1); Osmolality,Calculated 278.3 MOS/KG (273-304)
[2019-02-18] MEDS: ALBUTEROL/IPRATROPIUM 3 ML NEB RESP TX SCH ×3 (07:11→19:20)
[2019-02-18] MEDS: NICOTINE 21 MG/24 HR PATCH TRANSDERM SCH (09:32)
[2019-02-18] MEDS: POTASSIUM CHLORIDE 20 MEQ TABLET PO PRN ×3 (09:33→14:08)
[2019-02-18] MEDS: PREGABALIN 100 MG CAPSULE PO SCH ×2 (09:33→21:50)
[2019-02-18] MEDS: tiZANidine 4 MG TABLET PO PRN ×2 (09:33→14:08)
[2019-02-18] MEDS: PANTOPRAZOLE 40 MG TABLET PO SCH (09:33)
[2019-02-18] MEDS: FLUTICASONE/SALMETEROL 250-50 DISKUS 14 DOSE INH SCH ×2 (09:34→21:48)
[2019-02-18] MEDS: DEXTROSE 5% NACL 0.9% 1,000 ML IV SCH ×3 (11:31→23:21)
[2019-02-18] MEDS: HYDROmorphone 2 MG TABLET PO PRN (21:50)
[2019-02-18] MEDS: FLUoxetine 20 MG CAPSULE PO SCH (21:51)
[2019-02-18] MEDS: TOPIRAMATE 100 MG TABLET PO SCH (21:51)
[2019-02-18] MEDS: WARFARIN 7.5 MG TABLET PO SCH (21:51)
[2019-02-18] MEDS: fentaNYL 25 MCG/HR PATCH TRANSDERM SCH (21:52)
[2019-02-18] MEDS: PROMETHAZINE 25 MG TABLET PO PRN (21:56)
[2019-02-19] MEDS: VANCOMYCIN 50 MG/ML 60 ML/BOTTLE PO SCH ×4 (03:45→21:00)
[2019-02-19] MEDS: LEVOTHYROXINE 112 MCG TABLET PO SCH (06:47)
[2019-02-19] MEDS: HYDROmorphone 2 MG TABLET PO PRN (06:53)
[2019-02-19] MEDS: ALBUTEROL/IPRATROPIUM 3 ML NEB RESP TX SCH ×3 (07:20→18:51)
[2019-02-19] MEDS: PREGABALIN 100 MG CAPSULE PO SCH ×2 (08:46→21:01)
[2019-02-19] MEDS: FLUTICASONE/SALMETEROL 250-50 DISKUS 14 DOSE INH SCH ×2 (08:46→21:01)
[2019-02-19] MEDS: PANTOPRAZOLE 40 MG TABLET PO SCH (08:46)
[2019-02-19] MEDS: NICOTINE 21 MG/24 HR PATCH TRANSDERM SCH (08:46)
[2019-02-19] MEDS: DEXTROSE 5% NACL 0.9% 1,000 ML IV SCH ×2 (12:59→15:06)
[2019-02-19] MEDS: tiZANidine 4 MG TABLET PO PRN ×2 (16:35→21:01)
[2019-02-19] MEDS: FLUoxetine 20 MG CAPSULE PO SCH (21:00)
[2019-02-19] MEDS: WARFARIN 7.5 MG TABLET PO SCH (21:01)
[2019-02-19] MEDS: TOPIRAMATE 100 MG TABLET PO SCH (21:01)
[2019-02-20] MEDS: DEXTROSE 5% NACL 0.9% 1,000 ML IV SCH ×3 (00:41→13:24)
[2019-02-20] MEDS: VANCOMYCIN 50 MG/ML 60 ML/BOTTLE PO SCH ×4 (03:20→21:36)
[2019-02-20] MEDS: HYDROmorphone 2 MG TABLET PO PRN ×3 (03:33→21:36)
[2019-02-20 05:54] LABS: INR 1.1; PT Patient Result 11.5 SECS (9.6-12.2)
[2019-02-20] MEDS: LEVOTHYROXINE 112 MCG TABLET PO SCH (06:17)
[2019-02-20] MEDS: ALBUTEROL/IPRATROPIUM 3 ML NEB RESP TX SCH ×3 (07:15→19:58)
[2019-02-20] MEDS: NICOTINE 21 MG/24 HR PATCH TRANSDERM SCH (08:31)
[2019-02-20] MEDS: PANTOPRAZOLE 40 MG TABLET PO SCH (08:31)
[2019-02-20] MEDS: PREGABALIN 100 MG CAPSULE PO SCH ×2 (08:31→21:36)
[2019-02-20] MEDS: FLUTICASONE/SALMETEROL 250-50 DISKUS 14 DOSE INH SCH ×2 (08:32→21:34)
[2019-02-20] MEDS: tiZANidine 4 MG TABLET PO PRN (18:02)
[2019-02-20] MEDS: FLUoxetine 20 MG CAPSULE PO SCH (21:35)
[2019-02-20] MEDS: WARFARIN 7.5 MG TABLET PO SCH (21:35)
[2019-02-20] MEDS: TOPIRAMATE 100 MG TABLET PO SCH (21:35)
[2019-02-21] MEDS: DEXTROSE 5% NACL 0.9% 1,000 ML IV SCH ×3 (01:37→16:39)
[2019-02-21] MEDS: VANCOMYCIN 50 MG/ML 60 ML/BOTTLE PO SCH ×4 (02:53→21:35)
[2019-02-21] MEDS: tiZANidine 4 MG TABLET PO PRN (02:57)
[2019-02-21 04:36] LABS: INR 1.1; PT Patient Result 12.4 SECS (9.6-12.2)
[2019-02-21] MEDS: LEVOTHYROXINE 112 MCG TABLET PO SCH (06:18)
[2019-02-21] MEDS: ALBUTEROL/IPRATROPIUM 3 ML NEB RESP TX SCH ×3 (07:20→19:00)
[2019-02-21] MEDS: FLUTICASONE/SALMETEROL 250-50 DISKUS 14 DOSE INH SCH ×2 (08:05→21:27)
[2019-02-21] MEDS: PANTOPRAZOLE 40 MG TABLET PO SCH (08:05)
[2019-02-21] MEDS: NICOTINE 21 MG/24 HR PATCH TRANSDERM SCH (08:05)
[2019-02-21] MEDS: PREGABALIN 100 MG CAPSULE PO SCH ×2 (08:05→21:27)
[2019-02-21] MEDS: HYDROmorphone 2 MG TABLET PO PRN ×2 (08:15→21:35)
[2019-02-21] MEDS: fentaNYL 25 MCG/HR PATCH TRANSDERM SCH (08:55)
[2019-02-21 09:45] LABS: Basophils % 0.2 % (0.0-0.8); Eosinophils # 0.1 10*3/uL (0.0-0.87); Eosinophils % 1.4 % (0.00-10.9); Hematocrit 33.4 VOL% (35.7-47.0); Hemoglobin 10.4 GM/DL (12.0-16.0); Immature Granulocytes % 0.5 %; Immature Granulocytes Absolute 0.02 #; Lymphocytes # 1.1 10*3/uL (1.4-4.0); Lymphocytes % 25.7 % (21.3-54.2); Mean Corpuscular HGB Conc 31.1 GM/DL (32-36); Mean Corpuscular Volume 88.4 FL (87-102); Monocytes % 4.5 % (1.7-12.7); Neutrophils % 67.7 % (38.7-73.9); Platelet Count 113 T/CUMM (130-400); Red Blood Count 3.78 MC/CUMM (3.8-5.5); Red Cell Distribution Width 16.5 % (9.3-17.3); White Blood Count 4.4 T/CUMM (4-12)
[2019-02-21 10:07] LABS: Calcium 8.9 MG/DL (8.5-10.1); Osmolality,Calculated 276.3 MOS/KG (273-304)
[2019-02-21] MEDS ORDERED: FUROSEMIDE 40 MG/4 ML VIAL IV ONE (16:26)
[2019-02-21] MEDS: TOPIRAMATE 100 MG TABLET PO SCH (21:28)
[2019-02-21] MEDS: FLUoxetine 20 MG CAPSULE PO SCH (21:28)
[2019-02-21] MEDS: PROMETHAZINE 25 MG TABLET PO PRN (21:35)
[2019-02-22] MEDS: VANCOMYCIN 50 MG/ML 60 ML/BOTTLE PO SCH ×4 (02:35→21:45)
[2019-02-22] MEDS: LEVOTHYROXINE 112 MCG TABLET PO SCH (07:13)
[2019-02-22] MEDS: ALBUTEROL/IPRATROPIUM 3 ML NEB RESP TX SCH ×3 (07:15→19:50)
[2019-02-22 07:30] LABS: INR 1.2; PT Patient Result 12.7 SECS (9.6-12.2)
[2019-02-22 07:49] LABS: Calcium 9.3 MG/DL (8.5-10.1)
[2019-02-22] MEDS ORDERED: LACTATED RINGERS 1,000 ML IV SCH (08:00)
[2019-02-22] MEDS ORDERED: PHENYLEPHRINE 1 MG/10 ML SYRINGE IV ONE (09:00)
[2019-02-22] MEDS ORDERED: propofoL 200 MG/20 ML VIAL IV ONE (09:00)
[2019-02-22] MEDS ORDERED: LIDOCAINE 100 MG/5 ML SYRINGE ONE (09:00)
[2019-02-22] MEDS: FLUTICASONE/SALMETEROL 250-50 DISKUS 14 DOSE INH SCH ×2 (09:52→21:45)
[2019-02-22] MEDS: NICOTINE 21 MG/24 HR PATCH TRANSDERM SCH (09:52)
[2019-02-22] MEDS: PREGABALIN 100 MG CAPSULE PO SCH ×2 (09:52→21:44)
[2019-02-22] MEDS: PANTOPRAZOLE 40 MG TABLET PO SCH (09:53)
[2019-02-22] MEDS: HYDROmorphone 2 MG TABLET PO PRN ×2 (15:54→21:48)
[2019-02-22] MEDS: FLUoxetine 20 MG CAPSULE PO SCH (21:44)
[2019-02-22] MEDS: TOPIRAMATE 100 MG TABLET PO SCH (21:44)
[2019-02-22] MEDS: PROMETHAZINE 25 MG TABLET PO PRN (21:48)
[2019-02-23] MEDS: VANCOMYCIN 50 MG/ML 60 ML/BOTTLE PO SCH (02:45)
[2019-02-23] MEDS: LEVOTHYROXINE 112 MCG TABLET PO SCH (05:47)
[2019-02-23 05:53] LABS: Basophils % 0.2 % (0.0-0.8); Eosinophils # 0.1 10*3/uL (0.0-0.87); Eosinophils % 1.2 % (0.00-10.9); Hematocrit 32.7 VOL% (35.7-47.0); Hemoglobin 10.2 GM/DL (12.0-16.0); Immature Granulocytes % 0.4 %; Immature Granulocytes Absolute 0.02 #; Lymphocytes % 19.8 % (21.3-54.2); Mean Corpuscular HGB Conc 31.2 GM/DL (32-36); Mean Corpuscular Volume 87.2 FL (87-102); Monocytes % 3.9 % (1.7-12.7); Neutrophils % 74.5 % (38.7-73.9); Platelet Count 119 T/CUMM (130-400); Red Blood Count 3.75 MC/CUMM (3.8-5.5); Red Cell Distribution Width 16.2 % (9.3-17.3); White Blood Count 5.1 T/CUMM (4-12)
[2019-02-23 05:54] LABS: INR 1.1; PT Patient Result 11.8 SECS (9.6-12.2)
[2019-02-23 06:26] LABS: Calcium 8.7 MG/DL (8.5-10.1); Osmolality,Calculated 279.1 MOS/KG (273-304)
[2019-02-23] MEDS: ALBUTEROL/IPRATROPIUM 3 ML NEB RESP TX SCH ×3 (07:18→19:46)
[2019-02-23 08:58] LABS: INR 1.1; PT Patient Result 11.8 SECS (9.6-12.2)
[2019-02-23] MEDS: PANTOPRAZOLE 40 MG TABLET PO SCH (10:08)
[2019-02-23] MEDS: PREGABALIN 100 MG CAPSULE PO SCH ×2 (10:08→22:02)
[2019-02-23] MEDS: FUROSEMIDE 40 MG TABLET PO SCH (10:08)
[2019-02-23] MEDS: FLUTICASONE/SALMETEROL 250-50 DISKUS 14 DOSE INH SCH ×2 (10:08→22:05)
[2019-02-23] MEDS: NICOTINE 21 MG/24 HR PATCH TRANSDERM SCH (10:08)
[2019-02-23] MEDS: tiZANidine 4 MG TABLET PO PRN (15:33)
[2019-02-23] MEDS: TOPIRAMATE 100 MG TABLET PO SCH (22:02)
[2019-02-23] MEDS: FLUoxetine 20 MG CAPSULE PO SCH (22:02)
[2019-02-23] MEDS: WARFARIN 7.5 MG TABLET PO SCH (22:03)
[2019-02-24] MEDS: tiZANidine 4 MG TABLET PO PRN ×2 (00:23→15:00)
[2019-02-24 05:28] LABS: INR 1.1; PT Patient Result 11.4 SECS (9.6-12.2)
[2019-02-24] MEDS: LEVOTHYROXINE 112 MCG TABLET PO SCH (05:50)
[2019-02-24] MEDS: ALBUTEROL/IPRATROPIUM 3 ML NEB RESP TX SCH ×3 (07:45→19:31)
[2019-02-24] MEDS ORDERED: POLYETHYLENE GLYCOL POWDER 17 GM PACK PO SCH (09:00)
[2019-02-24] MEDS: POLYETHYLENE GLYCOL POWDER 17 GM PACK PO SCH ×3 (09:49→20:39)
[2019-02-24] MEDS: PREGABALIN 100 MG CAPSULE PO SCH ×2 (09:49→20:40)
[2019-02-24] MEDS: NICOTINE 21 MG/24 HR PATCH TRANSDERM SCH (09:50)
[2019-02-24] MEDS: FLUTICASONE/SALMETEROL 250-50 DISKUS 14 DOSE INH SCH ×2 (09:50→20:42)
[2019-02-24] MEDS: FUROSEMIDE 40 MG TABLET PO SCH (09:50)
[2019-02-24] MEDS: fentaNYL 25 MCG/HR PATCH TRANSDERM SCH (09:50)
[2019-02-24] MEDS: PANTOPRAZOLE 40 MG TABLET PO SCH (09:50)
[2019-02-24] MEDS ORDERED: BISACODYL 10 MG SUPP RECTAL ONE (14:22)
[2019-02-24] MEDS: TOPIRAMATE 100 MG TABLET PO SCH (20:40)
[2019-02-24] MEDS: FLUoxetine 20 MG CAPSULE PO SCH (20:41)
[2019-02-24] MEDS: WARFARIN 7.5 MG TABLET PO SCH (20:41)
[2019-02-24] MEDS: HYDROmorphone 2 MG TABLET PO PRN (20:41)
[2019-02-25 05:08] LABS: Basophils % 0.2 % (0.0-0.8); Eosinophils # 0.1 10*3/uL (0.0-0.87); Eosinophils % 1.9 % (0.00-10.9); Hemoglobin 10.5 GM/DL (12.0-16.0); Immature Granulocytes % 0.2 %; Immature Granulocytes Absolute 0.01 #; Lymphocytes # 1.1 10*3/uL (1.4-4.0); Lymphocytes % 23.6 % (21.3-54.2); Mean Corpuscular HGB Conc 31.8 GM/DL (32-36); Mean Corpuscular Volume 86.6 FL (87-102); Mean Platelet Volume 10.6 FL (9.6-12.0); Monocytes % 4.5 % (1.7-12.7); Neutrophils % 69.6 % (38.7-73.9); Platelet Count 106 T/CUMM (130-400); Red Blood Count 3.81 MC/CUMM (3.8-5.5); White Blood Count 4.7 T/CUMM (4-12)
[2019-02-25 05:16] LABS: INR 1.1; PT Patient Result 11.4 SECS (9.6-12.2)
[2019-02-25 05:30] LABS: Albumin 3.1 G/DL (3.4-5.0); Bilirubin,Total 0.4 MG/DL (0.2-1.0); Calcium 9.2 MG/DL (8.5-10.1); Osmolality,Calculated 277.4 MOS/KG (273-304); Total Protein 6.6 G/DL (6.4-8.3)
[2019-02-25] MEDS: LEVOTHYROXINE 112 MCG TABLET PO SCH (05:42)
[2019-02-25] MEDS: ALBUTEROL/IPRATROPIUM 3 ML NEB RESP TX SCH ×3 (07:16→19:38)
[2019-02-25] MEDS: PREGABALIN 100 MG CAPSULE PO SCH ×2 (09:18→20:44)
[2019-02-25] MEDS: POLYETHYLENE GLYCOL POWDER 17 GM PACK PO SCH ×2 (09:18→20:43)
[2019-02-25] MEDS: PANTOPRAZOLE 40 MG TABLET PO SCH (09:18)
[2019-02-25] MEDS: FUROSEMIDE 40 MG TABLET PO SCH (09:18)
[2019-02-25] MEDS: NICOTINE 21 MG/24 HR PATCH TRANSDERM SCH (09:19)
[2019-02-25] MEDS: FLUTICASONE/SALMETEROL 250-50 DISKUS 14 DOSE INH SCH ×2 (09:19→20:43)
[2019-02-25] MEDS: HYDROmorphone 2 MG TABLET PO PRN (19:32)
[2019-02-25] MEDS: WARFARIN 7.5 MG TABLET PO SCH (19:32)
[2019-02-25] MEDS: FLUoxetine 20 MG CAPSULE PO SCH (20:44)
[2019-02-25] MEDS: TOPIRAMATE 100 MG TABLET PO SCH (20:44)
[2019-02-25] MEDS: tiZANidine 4 MG TABLET PO PRN (20:47)
[2019-02-26 06:16] LABS: Eosinophils # 0.1 10*3/uL (0.0-0.87); Eosinophils % 2.2 % (0.00-10.9); Hematocrit 30.9 VOL% (35.7-47.0); Hemoglobin 9.7 GM/DL (12.0-16.0); Immature Granulocytes % 0.2 %; Immature Granulocytes Absolute 0.01 #; Lymphocytes # 1.1 10*3/uL (1.4-4.0); Lymphocytes % 24.9 % (21.3-54.2); Mean Corpuscular HGB Conc 31.4 GM/DL (32-36); Mean Corpuscular Volume 86.6 FL (87-102); Mean Platelet Volume 11.5 FL (9.6-12.0); Monocytes % 5.7 % (1.7-12.7); Platelet Count 115 T/CUMM (130-400); Red Blood Count 3.57 MC/CUMM (3.8-5.5); Red Cell Distribution Width 16.2 % (9.3-17.3); White Blood Count 4.5 T/CUMM (4-12)
[2019-02-26 06:25] LABS: INR 1.2; PT Patient Result 13.2 SECS (9.6-12.2)
[2019-02-26] MEDS: LEVOTHYROXINE 112 MCG TABLET PO SCH (06:29)
[2019-02-26 06:33] LABS: Albumin 2.9 G/DL (3.4-5.0); Bilirubin,Total 0.7 MG/DL (0.2-1.0); Calcium 8.9 MG/DL (8.5-10.1); Osmolality,Calculated 277.4 MOS/KG (273-304); Total Protein 6.1 G/DL (6.4-8.3)
[2019-02-26] MEDS: ALBUTEROL/IPRATROPIUM 3 ML NEB RESP TX SCH ×2 (07:38→14:02)
[2019-02-26] MEDS: PANTOPRAZOLE 40 MG TABLET PO SCH (08:51)
[2019-02-26] MEDS: NICOTINE 21 MG/24 HR PATCH TRANSDERM SCH (08:51)
[2019-02-26] MEDS: PREGABALIN 100 MG CAPSULE PO SCH (08:51)
[2019-02-26] MEDS: FLUTICASONE/SALMETEROL 250-50 DISKUS 14 DOSE INH SCH (08:51)
[2019-02-26] MEDS: FUROSEMIDE 40 MG TABLET PO SCH (08:51)
[2019-02-26] MEDS: POLYETHYLENE GLYCOL POWDER 17 GM PACK PO SCH (08:52)
[2019-02-26] MEDS: tiZANidine 4 MG TABLET PO PRN (15:28)
[2019-02-26 16:30] VITALS: BP 121/66
== END 2019-02-26 17:40 | disposition home or self-care (01) | DRG 372 ==
LOC: N.ED 16:19 → N.EDINP 16:19 → N.5E 19:33
PROVIDERS: ADMIT Internal Medicine; ATTEND Internal Medicine

== ENCOUNTER 2020-09-06 04:59 | Inpatient (IN) ==
[2020-09-06] MEDS ORDERED: ONDANSETRON 4 MG/2 ML VIAL IV STA (05:17)
[2020-09-06 05:35] LABS: Basophils % 0.2 % (0.0-0.8); Eosinophils % 0.2 % (0.00-10.9); Hematocrit 40.6 VOL% (35.7-47.0); Hemoglobin 13.6 GM/DL (12.0-16.0); Immature Granulocytes % 0.9 %; Immature Granulocytes Absolute 0.08 #; Lymphocytes # 0.8 10*3/uL (1.4-4.0); Lymphocytes % 8.9 % (21.3-54.2); Mean Corpuscular HGB Conc 33.5 GM/DL (32-36); Mean Corpuscular Volume 86.9 FL (87-102); Mean Platelet Volume 10.6 FL (9.6-12.0); Monocytes % 3.6 % (1.7-12.7); Neutrophils % 86.2 % (38.7-73.9); Platelet Count 114 T/CUMM (130-400); Red Blood Count 4.67 MC/CUMM (3.8-5.5); Red Cell Distribution Width 16.3 % (9.3-17.3); White Blood Count 9.1 T/CUMM (4-12)
[2020-09-06 05:39] LABS: INR 3.6; PT Patient Result 36.1 SECS (9.8-11.9)
[2020-09-06 05:51] LABS: Alanine Aminotransferase 39 U/L (13-56); Albumin 3.8 G/DL (3.4-5.0); Alkaline Phosphatase 210 U/L (45-117); Aspartate Amino Transferase 39 U/L (0-37); Blood Urea Nitrogen 7 MG/DL (7-18); Carbon Dioxide 26 MMOL/L (21-32); Estimated Glom Filtration Rate 85 ML/MIN; Glucose 95 MG/DL (74-106); Osmolality,Calculated 265.2 MOS/KG (273-304); Potassium 3.8 MMOL/L (3.5-5.1); Sodium 134 MMOL/L (136-145); Total Protein 7.1 G/DL (6.4-8.2); Troponin I < 0.015 NG/ML (0.00-0.045)
[2020-09-06] MEDS ORDERED: HYDROmorphone 2 MG/1 ML VIAL ONE (06:32)
[2020-09-06] MEDS ORDERED: HYDROmorphone 2 MG/1 ML VIAL IV STA (06:35)
[2020-09-06 06:40] LABS: Amorphous Crystals,Urine Few /HPF (Few); Bilirubin,Urine Negative (Negative); Blood, Urine Negative (Negative); Glucose,Urine (UA) Negative (Negative); Ketones,Urine Negative (Negative); Mucus,Urine Occasional /LPF (Occasional); Nitrite,Urine Negative (Negative); Protein,Urine Negative; RBC,Urine 2 /HPF (0-4); Urine Appearance CLOUDY (Clear); Urine Color Yellow (Yellow); Urine Specific Gravity 1.018 (1.001-1.035); Urine Urobilinogen < 2.0 EU/DL (0.2-1.0)
[2020-09-06] MEDS ORDERED: ACETAMINOPHEN 325 MG TABLET PO PRN (07:45)
[2020-09-06] MEDS ORDERED: ONDANSETRON 4 MG/2 ML VIAL IV PRN (07:45)
[2020-09-06] MEDS ORDERED: SODIUM CHLORIDE 0.9% 1,000 ML IV PRN ×2 (08:23→19:02)
[2020-09-06] MEDS: SODIUM CHLORIDE 0.9% 1,000 ML IV SCH ×2 (08:56→18:28)
[2020-09-06] MEDS: PANTOPRAZOLE 40 MG TABLET PO SCH (10:12)
[2020-09-06] MEDS: DOCUSATE SODIUM 100 MG CAPSULE PO SCH ×2 (10:12→21:29)
[2020-09-06] MEDS ORDERED: ALBUTEROL 2.5 MG/3 ML NEB RESP TX PRN (14:06)
[2020-09-06] MEDS ORDERED: NITROGLYCERIN SL 0.4 MG TABLET SL PRN (14:06)
[2020-09-06] MEDS: CHOLECALCIFEROL 1,000 UNIT TABLET PO SCH (15:14)
[2020-09-06] MEDS: HYDROmorphone 2 MG/1 ML VIAL IV PRN (15:16)
[2020-09-06] MEDS: fentaNYL 25 MCG/HR PATCH TRANSDERM SCH (16:07)
[2020-09-06 16:13] LABS: PT Patient Result 20.8 SECS (9.8-11.9)
[2020-09-06] MEDS: amLODIPine 2.5 MG TABLET PO SCH (21:28)
[2020-09-06] MEDS: FLUoxetine 20 MG CAPSULE PO SCH (21:28)
[2020-09-06] MEDS: PREGABALIN 100 MG CAPSULE PO SCH (21:29)
[2020-09-06] MEDS: LEVOTHYROXINE 112 MCG TABLET PO SCH (21:29)
[2020-09-06] MEDS: FLUTICASONE/SALMETEROL 250-50 DISKUS 14 DOSE INH SCH (23:23)
[2020-09-07] MEDS ORDERED: propofoL 200 MG/20 ML VIAL IV ONE (06:33)
[2020-09-07] MEDS ORDERED: LIDOCAINE 2% 5 ML VIAL ONE (06:33)
[2020-09-07] MEDS ORDERED: ROCURONIUM 50 MG/5 ML VIAL IV ONE (06:33)
[2020-09-07] MEDS ORDERED: fentaNYL 100 MCG/2 ML VIAL ONE ×2 (06:34→08:42)
[2020-09-07] MEDS ORDERED: MIDAZOLAM 2 MG/2 ML VIAL ONE (06:34)
[2020-09-07 06:55] LABS: Basophils % 0.1 % (0.0-0.8); Eosinophils % 0.5 % (0.00-10.9); Hematocrit 36.3 VOL% (35.7-47.0); Hemoglobin 11.7 GM/DL (12.0-16.0); Immature Granulocytes % 0.7 %; Immature Granulocytes Absolute 0.05 #; Lymphocytes # 0.9 10*3/uL (1.4-4.0); Lymphocytes % 11.4 % (21.3-54.2); Mean Corpuscular HGB Conc 32.2 GM/DL (32-36); Mean Corpuscular Volume 89.4 FL (87-102); Mean Platelet Volume 11.3 FL (9.6-12.0); Monocytes % 5.8 % (1.7-12.7); Neutrophils % 81.5 % (38.7-73.9); Platelet Count 99 T/CUMM (130-400); Red Blood Count 4.06 MC/CUMM (3.8-5.5); Red Cell Distribution Width 16.3 % (9.3-17.3); White Blood Count 7.6 T/CUMM (4-12)
[2020-09-07 07:03] LABS: INR 1.6; Partial Thromboplastin Time 43.7 SECS (23.9-33.8)
[2020-09-07 07:11] LABS: Albumin 3.2 G/DL (3.4-5.0); Calcium 8.4 MG/DL (8.5-10.1); Osmolality,Calculated 274.5 MOS/KG (273-304); Potassium 3.6 MMOL/L (3.5-5.1); Total Protein 6.5 G/DL (6.4-8.2)
[2020-09-07] MEDS ORDERED: BISACODYL 10 MG SUPP RECTAL PRN (07:18)
[2020-09-07] MEDS ORDERED: LACTULOSE 20 GM/30 ML UDCUP PO PRN (07:18)
[2020-09-07] MEDS ORDERED: MAGNESIUM HYDROXIDE SUSP 30 ML UDCUP PO PRN (07:18)
[2020-09-07] MEDS ORDERED: TEMAZEPAM 7.5 MG CAPSULE PO PRN (07:18)
[2020-09-07] MEDS ORDERED: diphenhydrAMINE CAP 25 MG CAPSULE PO PRN (07:18)
[2020-09-07] MEDS ORDERED: LACTATED RINGERS 1,000 ML IV SCH (07:30)
[2020-09-07] MEDS ORDERED: ePHEDrine 50 MG/ML VIAL ONE (07:32)
[2020-09-07] MEDS ORDERED: PHENYLEPHRINE 1 MG/10 ML SYRINGE IV ONE ×2 (07:36→08:32)
[2020-09-07] MEDS ORDERED: ceFAZolin 1,000 MG VIAL ONE (07:36)
[2020-09-07] MEDS ORDERED: SEVOFLURANE 1 UNIT/15 MINUTE INH ONE ×7 (07:36→08:47)
[2020-09-07] MEDS ORDERED: DEXAMETHASONE 4 MG/1 ML VIAL ONE (07:47)
[2020-09-07] MEDS ORDERED: ONDANSETRON 4 MG/2 ML VIAL ONE (07:47)
[2020-09-07] MEDS ORDERED: ACETAMINOPHEN 1,000 MG/100 ML VIAL IV ONE (07:56)
[2020-09-07] MEDS ORDERED: PROMETHAZINE 25 MG/1 ML VIAL IM PRN (08:00)
[2020-09-07] MEDS ORDERED: oxyCODONE/ACETAMINOPHEN 5-325 MG TABLET PO PRN (08:00)
[2020-09-07] MEDS ORDERED: ALBUMIN 5% 12.5 GM/250 ML VIAL IV ONE (08:12)
[2020-09-07] MEDS ORDERED: NEOSTIGMINE 10 MG/10 ML VIAL ONE (08:29)
[2020-09-07] MEDS ORDERED: GLYCOPYRROLATE 0.4 MG/2 ML VIAL ONE (08:29)
[2020-09-07] MEDS ORDERED: LACTATED RINGERS 1,000 ML IV ONE (08:38)
[2020-09-07] MEDS ORDERED: DOCUSATE SODIUM 100 MG CAPSULE PO SCH (09:00)
[2020-09-07 09:48] LABS: Basophils % 0.1 % (0.0-0.8); Eosinophils % 0.1 % (0.00-10.9); Hemoglobin 11.3 GM/DL (12.0-16.0); Immature Granulocytes % 0.7 %; Immature Granulocytes Absolute 0.06 #; Lymphocytes # 0.5 10*3/uL (1.4-4.0); Lymphocytes % 5.9 % (21.3-54.2); Mean Corpuscular HGB Conc 32.3 GM/DL (32-36); Mean Corpuscular Volume 90.2 FL (87-102); Mean Platelet Volume 10.6 FL (9.6-12.0); Neutrophils % 90.2 % (38.7-73.9); Platelet Count 97 T/CUMM (130-400); Red Blood Count 3.88 MC/CUMM (3.8-5.5); Red Cell Distribution Width 16.5 % (9.3-17.3); White Blood Count 8.6 T/CUMM (4-12)
[2020-09-07] MEDS: SODIUM CHLORIDE 0.9% 1,000 ML IV SCH (09:56)
[2020-09-07] MEDS: CHOLECALCIFEROL 1,000 UNIT TABLET PO SCH (10:01)
[2020-09-07] MEDS: PREGABALIN 100 MG CAPSULE PO SCH ×2 (10:01→21:09)
[2020-09-07] MEDS: DOCUSATE SODIUM 100 MG CAPSULE PO SCH ×2 (10:01→21:09)
[2020-09-07] MEDS: FUROSEMIDE 40 MG TABLET PO SCH (10:05)
[2020-09-07] MEDS: PANTOPRAZOLE 40 MG TABLET PO SCH (10:06)
[2020-09-07] MEDS: FLUTICASONE/SALMETEROL 250-50 DISKUS 14 DOSE INH SCH ×2 (10:06→21:08)
[2020-09-07 10:49] LABS: Hypochromasia 1+; Microcytosis 1+; Ovalocytes Slight
[2020-09-07 10:50] LABS: Platelet Estimate Decreased
[2020-09-07] MEDS: oxyCODONE/ACETAMINOPHEN 5-325 MG TABLET PO PRN (13:31)
[2020-09-07] MEDS: ceFAZolin 1,000 MG in SYRINGE 1 EACH IV SCH (15:45)
[2020-09-07] MEDS: amLODIPine 2.5 MG TABLET PO SCH (21:09)
[2020-09-07] MEDS: FLUoxetine 20 MG CAPSULE PO SCH (21:09)
[2020-09-07] MEDS: LEVOTHYROXINE 112 MCG TABLET PO SCH (21:09)
[2020-09-07] MEDS: HYDROmorphone 2 MG/1 ML VIAL IV PRN (21:10)
[2020-09-08] MEDS: ceFAZolin 1,000 MG in SYRINGE 1 EACH IV SCH (00:18)
[2020-09-08] MEDS: HYDROmorphone 2 MG/1 ML VIAL IV PRN ×2 (05:21→21:23)
[2020-09-08 06:11] LABS: INR 1.6; PT Patient Result 16.9 SECS (9.8-11.9)
[2020-09-08 06:17] LABS: Basophils % 0.1 % (0.0-0.8); Eosinophils # 0.1 10*3/uL (0.0-0.87); Eosinophils % 0.7 % (0.00-10.9); Hematocrit 29.6 VOL% (35.7-47.0); Hemoglobin 9.9 GM/DL (12.0-16.0); Immature Granulocytes % 0.7 %; Immature Granulocytes Absolute 0.06 #; Lymphocytes # 1.3 10*3/uL (1.4-4.0); Lymphocytes % 14.5 % (21.3-54.2); Mean Corpuscular HGB Conc 33.4 GM/DL (32-36); Mean Corpuscular Volume 88.9 FL (87-102); Mean Platelet Volume 11.1 FL (9.6-12.0); Platelet Count 104 T/CUMM (130-400); Red Blood Count 3.33 MC/CUMM (3.8-5.5); Red Cell Distribution Width 15.9 % (9.3-17.3); White Blood Count 8.8 T/CUMM (4-12)
[2020-09-08 07:06] LABS: Calcium 8.2 MG/DL (8.5-10.1); Osmolality,Calculated 273.5 MOS/KG (273-304); Potassium 3.4 MMOL/L (3.5-5.1)
[2020-09-08] MEDS: CHOLECALCIFEROL 1,000 UNIT TABLET PO SCH (08:37)
[2020-09-08] MEDS: PANTOPRAZOLE 40 MG TABLET PO SCH (08:39)
[2020-09-08] MEDS: FUROSEMIDE 40 MG TABLET PO SCH (08:39)
[2020-09-08] MEDS: FLUTICASONE/SALMETEROL 250-50 DISKUS 14 DOSE INH SCH ×2 (08:40→20:57)
[2020-09-08] MEDS: DOCUSATE SODIUM 100 MG CAPSULE PO SCH ×2 (08:41→20:56)
[2020-09-08] MEDS: PREGABALIN 100 MG CAPSULE PO SCH ×2 (08:41→20:56)
[2020-09-08] MEDS: oxyCODONE/ACETAMINOPHEN 5-325 MG TABLET PO PRN (08:49)
[2020-09-08] MEDS ORDERED: WARFARIN 7.5 MG TABLET PO SCH (20:00)
[2020-09-08] MEDS: amLODIPine 2.5 MG TABLET PO SCH (20:56)
[2020-09-08] MEDS: WARFARIN 7.5 MG TABLET PO SCH (20:56)
[2020-09-08] MEDS: FLUoxetine 20 MG CAPSULE PO SCH (21:00)
[2020-09-08] MEDS: LEVOTHYROXINE 112 MCG TABLET PO SCH (21:00)
[2020-09-09 05:36] LABS: Basophils % 0.1 % (0.0-0.8); Eosinophils # 0.1 10*3/uL (0.0-0.87); Hematocrit 23.6 VOL% (35.7-47.0); Hemoglobin 7.7 GM/DL (12.0-16.0); Immature Granulocytes % 0.9 %; Immature Granulocytes Absolute 0.06 #; Lymphocytes # 1.2 10*3/uL (1.4-4.0); Mean Corpuscular HGB Conc 32.6 GM/DL (32-36); Mean Corpuscular Volume 90.8 FL (87-102); Mean Platelet Volume 10.6 FL (9.6-12.0); Monocytes % 7.4 % (1.7-12.7); Neutrophils % 73.6 % (38.7-73.9); Platelet Count 92 T/CUMM (130-400); Red Cell Distribution Width 15.9 % (9.3-17.3); White Blood Count 6.9 T/CUMM (4-12)
[2020-09-09] MEDS: SODIUM CHLORIDE 0.9% 1,000 ML IV SCH (06:05)
[2020-09-09 06:06] LABS: Platelet Estimate Decreased
[2020-09-09 06:07] LABS: Anisocytosis 1+; Macrocytosis Slight
[2020-09-09 06:40] LABS: Albumin 2.5 G/DL (3.4-5.0); Bilirubin,Total 1.5 MG/DL (0.2-1.0); Osmolality,Calculated 277.4 MOS/KG (273-304); Potassium 3.3 MMOL/L (3.5-5.1); Total Protein 5.4 G/DL (6.4-8.2)
[2020-09-09] MEDS: PREGABALIN 100 MG CAPSULE PO SCH ×3 (08:48→20:57)
[2020-09-09] MEDS: DOCUSATE SODIUM 100 MG CAPSULE PO SCH ×2 (08:49→20:57)
[2020-09-09] MEDS: HYDROmorphone 2 MG/1 ML VIAL IV PRN ×2 (08:49→18:16)
[2020-09-09] MEDS: FUROSEMIDE 40 MG TABLET PO SCH (08:49)
[2020-09-09] MEDS: PANTOPRAZOLE 40 MG TABLET PO SCH (08:49)
[2020-09-09] MEDS: FLUTICASONE/SALMETEROL 250-50 DISKUS 14 DOSE INH SCH ×2 (08:49→20:58)
[2020-09-09] MEDS: CHOLECALCIFEROL 1,000 UNIT TABLET PO SCH (08:49)
[2020-09-09] MEDS: fentaNYL 25 MCG/HR PATCH TRANSDERM SCH (16:31)
[2020-09-09] MEDS ORDERED: MAGNESIUM SULF RIDER 2 GM in PREMIX 1 EACH IV ONE (20:38)
[2020-09-09] MEDS: FLUoxetine 20 MG CAPSULE PO SCH (20:56)
[2020-09-09] MEDS: WARFARIN 7.5 MG TABLET PO SCH (20:56)
[2020-09-09] MEDS: LEVOTHYROXINE 112 MCG TABLET PO SCH (20:56)
[2020-09-09] MEDS: amLODIPine 2.5 MG TABLET PO SCH (20:58)
[2020-09-10 06:09] LABS: Basophils % 0.2 % (0.0-0.8); Eosinophils # 0.1 10*3/uL (0.0-0.87); Eosinophils % 1.2 % (0.00-10.9); Immature Granulocytes % 0.6 %; Immature Granulocytes Absolute 0.04 #; Lymphocytes # 1.1 10*3/uL (1.4-4.0); Lymphocytes % 16.6 % (21.3-54.2); Mean Corpuscular HGB Conc 33.3 GM/DL (32-36); Mean Corpuscular Volume 89.6 FL (87-102); Mean Platelet Volume 10.6 FL (9.6-12.0); Monocytes % 6.3 % (1.7-12.7); Neutrophils % 75.1 % (38.7-73.9); Platelet Count 99 T/CUMM (130-400); Red Blood Count 2.68 MC/CUMM (3.8-5.5); Red Cell Distribution Width 15.5 % (9.3-17.3); White Blood Count 6.5 T/CUMM (4-12)
[2020-09-10 06:29] LABS: Hypochromasia 2+; Microcytosis 1+; Platelet Estimate Decreased
[2020-09-10 06:40] LABS: Calcium 8.3 MG/DL (8.5-10.1); Osmolality,Calculated 267.1 MOS/KG (273-304); Potassium 3.2 MMOL/L (3.5-5.1)
[2020-09-10] MEDS: DOCUSATE SODIUM 100 MG CAPSULE PO SCH (09:41)
[2020-09-10] MEDS: CHOLECALCIFEROL 1,000 UNIT TABLET PO SCH (09:41)
[2020-09-10] MEDS: PANTOPRAZOLE 40 MG TABLET PO SCH (09:41)
[2020-09-10] MEDS: FLUTICASONE/SALMETEROL 250-50 DISKUS 14 DOSE INH SCH (09:41)
[2020-09-10] MEDS: FUROSEMIDE 40 MG TABLET PO SCH (09:41)
[2020-09-10] MEDS: PREGABALIN 100 MG CAPSULE PO SCH (09:45)
[2020-09-10] MEDS: HYDROmorphone 2 MG/1 ML VIAL IV PRN (13:30)
[2020-09-10 17:16] VITALS: BP 99/42
[2020-09-10] MEDS ORDERED: WARFARIN 7.5 MG TABLET PO SCH (20:00)
== END 2020-09-10 17:22 | DRG 522 ==
LOC: EDUNIT# → EDBD → N.ED 04:59 → N.EDINP 06:20 → N.3E 07:02
PROVIDERS: ADMIT Internal Medicine; ATTEND Internal Medicine

== ENCOUNTER 2021-12-26 11:30 | Observation (INO) ==
[2021-12-26] MEDS ORDERED: SODIUM CHLORIDE 0.9% 1,000 ML IV STA (12:07)
[2021-12-26] MEDS ORDERED: NALOXONE 0.4 MG/ML VIAL IV STA (12:07)
[2021-12-26 13:12] LABS: Basophils % 0.2 % (0.0-0.8); Eosinophils # 0.1 10*3/uL (0.0-0.87); Eosinophils % 1.5 % (0.00-10.9); Hematocrit 36.9 VOL% (35.7-47.0); Hemoglobin 11.9 GM/DL (12.0-16.0); Immature Granulocytes % 1.1 %; Immature Granulocytes Absolute 0.05 #; Lymphocytes # 1.1 10*3/uL (1.4-4.0); Lymphocytes % 23.8 % (21.3-54.2); Mean Corpuscular HGB Conc 32.2 GM/DL (32-36); Mean Corpuscular Volume 88.3 FL (87-102); Mean Platelet Volume 10.1 FL (9.6-12.0); Monocytes # 0.3 10*3/uL (0.11-0.8); Monocytes % 5.9 % (1.7-12.7); Neutrophils % 67.5 % (38.7-73.9); Platelet Count 140 T/CUMM (130-400); Red Blood Count 4.18 MC/CUMM (3.8-5.5); White Blood Count 4.8 T/CUMM (4-12)
[2021-12-26 13:17] LABS: Bilirubin,Urine Negative (Negative); Blood, Urine Small mg/dL (Negative); Glucose,Urine (UA) Negative (Negative); Ketones,Urine Negative (Negative); Nitrite,Urine Negative (Negative); Protein,Urine Negative (Negative); Urine Appearance Clear (Clear); Urine Color Yellow (Yellow); Urine Urobilinogen 0.2 eU/dL (<2.0); Urine pH 6.5 (4.5-8.0)
[2021-12-26 13:18] LABS: Bacteria,Urine Occasional /HPF (Few); RBC,Urine 4 /HPF (0-4)
[2021-12-26 13:28] LABS: INR 2.1; PT Patient Result 22.4 SECS (10.1-12.1); Partial Thromboplastin Time 43.1 SECS (23.7-32.9)
[2021-12-26 13:30] LABS: Alanine Aminotransferase 36 U/L (13-56); Albumin 3.3 G/DL (3.4-5.0); Alkaline Phosphatase 153 U/L (45-117); Aspartate Amino Transferase 29 U/L (0-37); Bilirubin,Total < 0.39 MG/DL (0.20-1.00); Blood Urea Nitrogen 9 MG/DL (7-18); Calcium 8.4 MG/DL (8.5-10.1); Carbon Dioxide 26 MMOL/L (21-32); Chloride 108 MMOL/L (98-107); Glucose 90 MG/DL (74-106); Osmolality,Calculated 277.4 MOS/KG (273-304); Sodium 140 MMOL/L (136-145); Total Protein 6.6 G/DL (6.4-8.2)
[2021-12-26 13:33] LABS: Barbiturates Screen,Urine Negative (Negative); Benzodiazepines Screen,Urine Negative (Negative); Cannabinoid Screen,Urine Negative (Negative); Opiate Screen,Urine Negative (Negative); Phencyclidine Screen,Urine Negative (Negative)
[2021-12-26] MEDS ORDERED: FUROSEMIDE 20 MG TABLET PO PRN (17:42)
[2021-12-26] MEDS ORDERED: ONDANSETRON 4 MG/2 ML VIAL IV PRN (17:42)
[2021-12-26] MEDS ORDERED: ACETAMINOPHEN 325 MG TABLET PO PRN (17:42)
[2021-12-26] MEDS ORDERED: WARFARIN 5 MG TABLET PO SCH (21:00)
[2021-12-26] MEDS ORDERED: FLUoxetine 20 MG CAPSULE PO SCH (21:00)
[2021-12-26] MEDS ORDERED: DULoxetine 30 MG CAPSULE PO SCH (21:00)
[2021-12-26] MEDS ORDERED: amLODIPine 2.5 MG TABLET PO SCH (21:00)
[2021-12-26] MEDS ORDERED: CHOLECALCIFEROL 1,000 UNIT TABLET PO SCH (21:00)
[2021-12-26] MEDS: DEXTROSE 5% NACL 0.45% 1,000 ML IV SCH (21:49)
[2021-12-26] MEDS: DOCUSATE SODIUM 100 MG CAPSULE PO SCH (21:50)
[2021-12-26] MEDS: PREGABALIN 100 MG CAPSULE PO SCH (21:51)
[2021-12-27] MEDS: DEXTROSE 5% NACL 0.45% 1,000 ML IV SCH (05:19)
[2021-12-27] MEDS ORDERED: LEVOTHYROXINE 112 MCG TABLET PO SCH (06:00)
[2021-12-27 06:35] LABS: Basophils % 0.2 % (0.0-0.8); Eosinophils % 0.9 % (0.00-10.9); Hematocrit 39.1 VOL% (35.7-47.0); Immature Granulocytes % 0.9 %; Immature Granulocytes Absolute 0.04 #; Lymphocytes # 0.9 10*3/uL (1.4-4.0); Lymphocytes % 20.6 % (21.3-54.2); Mean Corpuscular HGB Conc 30.7 GM/DL (32-36); Mean Platelet Volume 9.7 FL (9.6-12.0); Monocytes # 0.3 10*3/uL (0.11-0.8); Monocytes % 7.2 % (1.7-12.7); Neutrophils % 70.2 % (38.7-73.9); Platelet Count 118 T/CUMM (130-400); Red Blood Count 4.16 MC/CUMM (3.8-5.5); White Blood Count 4.5 T/CUMM (4-12)
[2021-12-27 06:38] LABS: Calcium 7.8 MG/DL (8.5-10.1); Osmolality,Calculated 276.4 MOS/KG (273-304); Potassium 3.8 MMOL/L (3.5-5.1)
[2021-12-27 08:19] VITALS: BP 101/50
[2021-12-27] MEDS ORDERED: PANTOPRAZOLE 40 MG TABLET PO SCH (09:00)
[2021-12-27] MEDS ORDERED: BETAMETHASONE VALERATE 0.1% CREAM 15 GM TUBE TOP SCH (09:00)
[2021-12-27] MEDS: DOCUSATE SODIUM 100 MG CAPSULE PO SCH (09:03)
[2021-12-27] MEDS: PREGABALIN 100 MG CAPSULE PO SCH (09:03)
== END 2021-12-27 10:50 | disposition home or self-care (01) ==
LOC: N.ED 11:30 → N.EDINP 11:30 → N.5E 18:05
PROVIDERS: ADMIT Internal Medicine; ATTEND Internal Medicine